=== PATIENT | male | born 1955 | race Caucasian/White ===

== ENCOUNTER 2020-09-10 11:57 | Inpatient (IN) | payer MEDICAID ==
[~2020-09-10] VITALS: Ht 182.9 cm; Wt 119.8 kg
[~2020-09-10 11:57] MED LIST: AMIO200T6 PO; APIX5TAB PO; ASPI-999 PO; FURO-124 PO; FURO20TA4 PO; HYDR-700 PO; LATA2.5D19 OU; LISI-552 PO; LISI10TA2 PO; METO50TA7 PO; POTA20TA15 PO; SERT50TA9 PO; SIMV10TA26 PO
--- NOTE | 2020-09-10 12:11 | ED Cardiac General ---
History of Present Illness General Stated Complaint: CARDIAC Source: patient Exam Limitations: no limitations History of Present Illness Date Seen by Provider: Sep 10, 2020 Time Seen by Provider: 12:09 Initial Comments to ER by EMS from home with reports of defibrillator discharge. He states that he was sitting on the couch watching TV when "that vest exploded on me". He was wearing his LifeVest and he denies any preceding palpitations lightheadedness or chest pain when it "exploded". Occurred yesterday at about 4 PM. He feels fine now. He has not yet had his morning dose of Eliquis but he did have it yesterday. 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 Associated Systoms: Denies Symptoms Allergies and Home Medications Allergies Coded Allergies: No Known Drug Allergies (Unverified , 08/27/20) Home Medications Amiodarone HCl 200 Mg Tablet, 200 MG PO DAILY Prescribed by: BHAVIN CARDENAS on 09/02/20 0854 Apixaban 5 Mg Tablet, 5 MG PO BID Prescribed by: BHAVIN CARDENAS on 09/02/20 0854 Aspirin 81 Mg Tab.chew, 81 MG PO DAILY, (Reported) Furosemide 40 Mg Tablet, 40 MG PO BID Prescribed by: BHAVIN CARDENAS on 09/02/20 0854 Hydroxyzine HCl 25 Mg Tablet, 25 MG PO TID PRN for ANXIETY, (Reported) Latanoprost 2.5 Ml Drops, 1 DROPS OU HS, (Reported) Lisinopril 10 Mg Tablet, 10 MG PO DAILY@0900 Prescribed by: BHAVIN CARDENAS on 09/02/20 0854 Metoprolol Succinate 50 Mg Tab.er.24h, 100 MG PO BID Prescribed by: BHAVIN CARDENAS on 09/02/20 0854 Potassium Chloride 20 Meq Tab.er.prt, 20 MEQ PO DAILY, (Reported) Sertraline HCl 50 Mg Tablet, 50 MG PO DAILY, (Reported) Simvastatin 10 Mg Tablet, 10 MG PO DAILY, (Reported) Patient Home Medication List Home Medication List Reviewed: Yes Review of Systems Review of Systems Constitutional: see HPI EENTM: No Symptoms Reported Respiratory: No Symptoms Reported Cardiovascular: No Symptoms Reported; Denies Chest Pain, Denies Edema, Denies Irregular Heart Rate, Denies Lightheadedness, Denies Palpitations, Denies Syncope Gastrointestinal: No Symptoms Reported Genitourinary: No Symptoms Reported Musculoskeletal: no symptoms reported Skin: no symptoms reported Psychiatric/Neurological: No Symptoms Reported Endocrine: No Symptoms Reported Past Ingyqnf-Mbftlh-Ubhlfc Hx Patient Social History Drug of Choice: weed Type Used: Cigarettes Recent Hopitalizations: No Seasonal Allergies Seasonal Allergies: No Past Medical History Surgeries: Yes (Right Knee) Currently Using CPAP: No Currently Using BIPAP: No Cardiac: No Chronic Edema/Swelling, High Cholesterol, Hypertension Neurological: No Traumatic Brain Injury Genitourinary: No Gastrointestinal: No Musculoskeletal: No Endocrine: No HEENT: No Cancer: No Family Medical History Patient reports no known family medical history. Physical Exam Vital Signs Vital Signs - First Documented 09/10/20 12:00 Temp 36.0 Pulse 84 Resp 20 B/P (MAP) 152/97 (115) Pulse Ox 96 O2 Delivery Room Air Capillary Refill : Height, Weight, BMI Height: '" Weight: lbs. oz. kg; 39.66 BMI Method: General Appearance: No Apparent Distress, WD/WN, Chronically ill (Appears older than stated age) Respiratory: Normal Breath Sounds, No Accessory Muscle Use, No Respiratory Distress Cardiovascular: Regular Rate, Rhythm, Normal Peripheral Pulses Gastrointestinal: Non Tender, Soft Neurologic/Psychiatric: Alert, Oriented x3 Skin: Normal Color, Warm/Dry Progress/Results/Core Measures Results/Orders Lab Results Laboratory Tests Test 09/10/20 12:15 Range/Units White Blood Count 9.8 4.3-11.0 10^3/uL Red Blood Count 5.08 4.30-5.52 10^6/uL Hemoglobin 15.4 13.3-17.7 g/dL Hematocrit 48 40-54 % Mean Corpuscular Volume 95 80-99 fL Mean Corpuscular Hemoglobin 30 25-34 pg Mean Corpuscular Hemoglobin Concent 32 32-36 g/dL Red Cell Distribution Width 14.0 10.0-14.5 % Platelet Count 225 130-400 10^3/uL Mean Platelet Volume 10.0 9.0-12.2 fL Immature Granulocyte % (Auto) 1 % Neutrophils (%) (Auto) 65 42-75 % Lymphocytes (%) (Auto) 26 12-44 % Monocytes (%) (Auto) 7 0-12 % Eosinophils (%) (Auto) 2 0-10 % Basophils (%) (Auto) 1 0-10 % Neutrophils # (Auto) 6.3 1.8-7.8 10^3/uL Lymphocytes # (Auto) 2.5 1.0-4.0 10^3/uL Monocytes # (Auto) 0.7 0.0-1.0 10^3/uL Eosinophils # (Auto) 0.2 0.0-0.3 10^3/uL Basophils # (Auto) 0.1 0.0-0.1 10^3/uL Immature Granulocyte # (Auto) 0.1 0.0-0.1 10^3/uL Prothrombin Time 14.6 12.2-14.7 SEC INR Comment 1.1 0.8-1.4 Activated Partial Thromboplast Time 21 L 24-35 SEC Sodium Level 138 135-145 MMOL/L Potassium Level 4.9 3.6-5.0 MMOL/L Chloride Level 106 98-107 MMOL/L Carbon Dioxide Level 24 21-32 MMOL/L Anion Gap 8 5-14 MMOL/L Blood Urea Nitrogen 31 H 7-18 MG/DL Creatinine 1.25 0.60-1.30 MG/DL Estimat Glomerular Filtration Rate 58 BUN/Creatinine Ratio 25 Glucose Level 94 70-105 MG/DL Calcium Level 8.9 8.5-10.1 MG/DL Corrected Calcium 9.2 8.5-10.1 MG/DL Magnesium Level 2.2 1.6-2.4 MG/DL Total Bilirubin 0.9 0.1-1.0 MG/DL Aspartate Amino Transf (AST/SGOT) 93 H 5-34 U/L Alanine Aminotransferase (ALT/SGPT) 130 H 0-55 U/L Alkaline Phosphatase 75 40-136 U/L Myoglobin 47.0 10.0-92.0 NG/ML Troponin I < 0.028 <0.028 NG/ML B-Type Natriuretic Peptide 532.3 H <100.0 PG/ML Total Protein 8.2 6.4-8.2 GM/DL Albumin 3.6 3.2-4.5 GM/DL My Orders Orders - SARAH WONG APRN Cbc With Automated Diff (09/10/20 12:06) Magnesium (09/10/20 12:06) Chest 1 View, Ap/Pa Only (09/10/20 12:06) Ekg Tracing (09/10/20 12:06) Comprehensive Metabolic Panel (09/10/20 12:06) Myoglobin Serum (09/10/20 12:06) Protime With Inr (09/10/20 12:06) Partial Thromboplastin Time (09/10/20 12:06) O2 (09/10/20 12:06) Monitor-Rhythm Ecg Trace Only (09/10/20 12:06) Lipid Panel (09/11/20 06:00) Ed Iv/Invasive Line Start (09/10/20 12:06) BNP (09/10/20 12:06) Troponin I (09/10/20 12:06) Apixaban Tablet (Eliquis Tablet) (09/10/20 13:00) Vital Signs/I&O 09/10/20 12:00 Temp 36.0 Pulse 84 Resp 20 B/P (MAP) 152/97 (115) Pulse Ox 96 O2 Delivery Room Air Diagnostic Imaging Diagonstic Imaging: Xray Plain Films/CT/US/NM/MRI: chest Comments NAME: KRISTY GROVE [facility] REC#: [id number] PT STATUS: REG ER : 1955 PHYSICIAN: SARAH WONG APRN ADMIT DATE: 09/10/20/ER Draft Date of Exam:09/10/20 CHEST 1 VIEW, AP/PA ONLY INDICATION: Chest pain. COMPARISON: 09/02/2020. FINDINGS: There is a subpulmonic right-sided pleural effusion with subjacent infiltrate or atelectasis. The heart is enlarged. There is some vascular congestion, however vascular congestion and likely edema have decreased from the comparison. IMPRESSION: Right pleural effusion may have increased, however heart size, vascular caliber and pulmonary edema have improved. Dictated on workstation # [id number] Dict: 09/10/20 1309 Trans: 09/10/20 1317 [facility] [id number] Interpreted by: CHANTELL VIRGEN Electronically signed by: Departure Communication (Admissions) Time/Spoke to Admitting Phy: 13:43 Obtained the rhythm strip from [facility] and I can see where he was defibrillated yesterday but not what the rhythm was after the shock. Patient is still asymptomatic. Electrolytes are normal. I spoke with Dr. Hamad, would like the patient admitted on an amiodarone drip. I will continue the Eliquis, continue his Toprol from home which is 100 mg twice a day. Impression Primary Impression: Defibrillator discharge Disposition: ADMITTED INPATIENT Condition: Stable Admissions Decision to Admit Reason: Admit from ER (General) Decision to Admit/Date: Sep 10, 2020 Time/Decision to Admit Time: 13:44 Departure-Patient Inst. Referrals: NO,LOCAL PHYSICIAN (PCP/Family) Primary Care Physician SARAH WONG APRN Sep 10, 2020 12:11
[2020-09-10 12:23] LABS: BASOPHILS # (AUTO) 0.1 10^3/uL (0.0-0.1); BASOPHILS % (AUTO) 1 % (0-10); EOSINOPHILS # (AUTO) 0.2 10^3/uL (0.0-0.3); EOSINOPHILS % (AUTO) 2 % (0-10); HEMATOCRIT 48 % (40-54); HEMOGLOBIN 15.4 g/dL (13.3-17.7); LYMPHOCYTES # (AUTO) 2.5 10^3/uL (1.0-4.0); LYMPHOCYTES % (AUTO) 26 % (12-44); MEAN CORPUSCULAR HEMOGLOBIN 30 pg (25-34); MEAN CORPUSCULAR HGB CONC 32 g/dL (32-36); MEAN CORPUSCULAR VOLUME 95 fL (80-99); MONOCYTES # (AUTO) 0.7 10^3/uL (0.0-1.0); MONOCYTES % (AUTO) 7 % (0-12); NEUTROPHILS # (AUTO) 6.3 10^3/uL (1.8-7.8); NEUTROPHILS % (AUTO) 65 % (42-75); PLATELET COUNT 225 10^3/uL (130-400); WHITE BLOOD COUNT 9.8 10^3/uL (4.3-11.0)
[2020-09-10 12:32] LABS: INR 1.1 (0.8-1.4); PROTHROMBIN TIME PATIENT 14.6 SEC (12.2-14.7)
[2020-09-10 12:35] LABS: ALBUMIN 3.6 GM/DL (3.2-4.5)
[2020-09-10 12:37] LABS: CALCIUM 8.9 MG/DL (8.5-10.1)
[2020-09-10 12:38] LABS: TOTAL PROTEIN 8.2 GM/DL (6.4-8.2)
[2020-09-10 12:39] LABS: BILIRUBIN,TOTAL 0.9 MG/DL (0.1-1.0)
[2020-09-10 12:41] LABS: CREATININE SERUM 1.25 MG/DL (0.60-1.30)
[2020-09-10 12:42] LABS: POTASSIUM 4.9 MMOL/L (3.6-5.0)
[2020-09-10 12:44] LABS: MAGNESIUM 2.2 MG/DL (1.6-2.4)
[2020-09-10] MEDS ORDERED: APIXABAN 5 MG (ELIQUIS) TABLET PO ONE (13:00)
--- NOTE | 2020-09-10 13:17 | Diagnostic Imaging Report ---
INDICATION: Chest pain. COMPARISON: 09/02/2020. FINDINGS: There is a subpulmonic right-sided pleural effusion with subjacent infiltrate or atelectasis. The heart is enlarged. There is some vascular congestion, however vascular congestion and likely edema have decreased from the comparison. IMPRESSION: Right pleural effusion may have increased, however heart size, vascular caliber and pulmonary edema have improved. Dictated by: Dictated on workstation # [id number]
--- NOTE | 2020-09-10 15:14 | Consultation-Cardiology ---
HPI-Cardiology Cardiology Consultation: Date of Consultation 09/10/20 Time Seen by a Provider: 15:30 Date of Admission 09-10-20 Attending Physician Madie Canas MD Admitting Physician No,Local Physician Consulting Physician Silvia Varner MD HPI: Chief Complaint: External defib discharge WCT Mr. Grove is a 65 yr old male who has been admitted to [facility] from the ED d/t WCT resulting if external defib discharge on 09-09-20. He denies any c/o palpitations, syncope or near syncope. He reports chronic SOB with recent worsening. Reports bilat LE swelling which had improved from previous admission, but has began to increase recently. He denies any c/o CP. He continues to smoke cigs. He continues to smoke marijuana, stating last usage a few days ago. He states he has been compliant with medications, but then he reported not taking Lasix yesterday. Review of Systems-Cardiology Review of Systems Constitutional: No chills, No fever Eyes: No vision change Ears/Nose/Throat: No epistaxis, No recent hearing loss Respiratory: As described under HPI Cardiovascular: As described under HPI Gastrointestinal: no symptoms reported Genitourinary: no symptoms reported Musculoskeletal: no symptoms reported Skin: other (bilat LE dry flaky skin); No rash on exposed areas, No ulcerations on exposed areas Psychiatric/Neurological: anxiety; No seizure, No focal weakness, No syncope Hematologic: No bleeding abnormalities QIG-Bcwulu-Fklobz Hx Patient Social History Smoking Status: Current Everyday Smoker Immunizations Up To Date Tetanus Booster (TDap): Unknown Past Medical History PMH As described under Assessment. Family Medical History Family Medical History: He denies any known family h/o CAD. Family History: Patient reports no known family medical history. Allergies and Home Medications Allergies Coded Allergies: No Known Drug Allergies (Unverified , 08/27/20) Home Medications Amiodarone HCl 200 Mg Tablet, 200 MG PO DAILY Prescribed by: BHAVIN CARDENAS on 09/02/20 0854 Apixaban 5 Mg Tablet, 5 MG PO BID Prescribed by: BHAVIN CARDENAS on 09/02/20 0854 Aspirin 81 Mg Tab.chew, 81 MG PO DAILY, (Reported) Furosemide 40 Mg Tablet, 40 MG PO BID Prescribed by: BHAVIN CARDENAS on 09/02/20 0854 Hydroxyzine HCl 25 Mg Tablet, 25 MG PO TID PRN for ANXIETY, (Reported) Latanoprost 2.5 Ml Drops, 1 DROPS OU HS, (Reported) Lisinopril 10 Mg Tablet, 10 MG PO DAILY@0900 Prescribed by: BHAVIN CARDENAS on 09/02/20 0854 Metoprolol Succinate 50 Mg Tab.er.24h, 100 MG PO BID Prescribed by: BHAVIN CARDENAS on 09/02/20 0854 Potassium Chloride 20 Meq Tab.er.prt, 20 MEQ PO DAILY, (Reported) Sertraline HCl 50 Mg Tablet, 50 MG PO DAILY, (Reported) Simvastatin 10 Mg Tablet, 10 MG PO DAILY, (Reported) Physical Exam-Cardiology Physical Exam Vital Signs/I&O 09/10/20 09/11/20 09/11/20 09/11/20 22:00 00:00 01:00 02:06 Temp 36.4 36.7 Pulse 63 60 60 Resp 20 20 B/P (MAP) 145/87 (106) 145/87 (106) Pulse Ox 91 92 O2 Delivery Nasal Cannula Room Air Nasal Cannula O2 Flow Rate 2.00 2.00 09/11/20 09/11/20 09/11/20 03:50 04:05 08:00 Temp 36.4 36.4 Pulse 60 64 Resp 20 16 B/P (MAP) 130/106 (114) 142/116 (125) Pulse Ox 95 93 O2 Delivery Nasal Cannula Nasal Cannula Nasal Cannula O2 Flow Rate 2.00 2.00 2.00 09/11/20 00:00 Intake Total 818 ml Balance 818 ml Capillary Refill : Less Than 3 Seconds Constitutional: AAO x 3, well-developed, well-nourished HEENT: PERRL, hearing is well preserved Neck: No carotid bruit; carotid pulses are 2 + bilaterally Respiratory: No accessory muscle use, No respiratory distress; chest expansion is symmetric, chest is bilaterally symmetric, other (diminished RLL) Cardiovascular: regular rate-rhythm; No JVD; S1 and S2 Gastrointestinal: No tender; soft, round, audible bowel sounds Extremities: other (bilat LE swelling pitting and non-pitting) Neurologic/Psychiatric: grossly intact (moves all extremities) Skin: No rash on exposed areas, No ulcerations on exposed areas Data Review Labs Laboratory Tests 09/10/20 12:15: White Blood Count 9.8, Red Blood Count 5.08, Hemoglobin 15.4, Hematocrit 48, Mean Corpuscular Volume 95, Mean Corpuscular Hemoglobin 30, Mean Corpuscular Hemoglobin Concent 32, Red Cell Distribution Width 14.0, Platelet Count 225, Mean Platelet Volume 10.0, Immature Granulocyte % (Auto) 1, Neutrophils (%) (Auto) 65, Lymphocytes (%) (Auto) 26, Monocytes (%) (Auto) 7, Eosinophils (%) (Auto) 2, Basophils (%) (Auto) 1, Neutrophils # (Auto) 6.3, Lymphocytes # (Auto) 2.5, Monocytes # (Auto) 0.7, Eosinophils # (Auto) 0.2, Basophils # (Auto) 0.1, Immature Granulocyte # (Auto) 0.1, Prothrombin Time 14.6, INR Comment 1.1, Activated Partial Thromboplast Time 21L, Sodium Level 138, Potassium Level 4.9, Chloride Level 106, Carbon Dioxide Level 24, Anion Gap 8, Blood Urea Nitrogen 31H, Creatinine 1.25, Estimat Glomerular Filtration Rate 58, BUN/Creatinine Ratio 25, Glucose Level 94, Calcium Level 8.9, Corrected Calcium 9.2, Magnesium Level 2.2, Total Bilirubin 0.9, Aspartate Amino Transf (AST/SGOT) 93H, Alanine Aminotransferase (ALT/SGPT) 130H, Alkaline Phosphatase 75, Myoglobin 47.0, Troponin I < 0.028, B-Type Natriuretic Peptide 532.3H, Total Protein 8.2, Albumin 3.6 09/10/20 18:00: Troponin I < 0.028 09/11/20 03:00: White Blood Count 9.0, Red Blood Count 5.28, Hemoglobin 16.0, Hematocrit 50, Mean Corpuscular Volume 95, Mean Corpuscular Hemoglobin 30, Mean Corpuscular Hemoglobin Concent 32, Red Cell Distribution Width 14.3, Platelet Count 238, Mean Platelet Volume 10.3, Immature Granulocyte % (Auto) 2, Neutrophils (%) (Auto) 64, Lymphocytes (%) (Auto) 24, Monocytes (%) (Auto) 8, Eosinophils (%) (Auto) 2, Basophils (%) (Auto) 1, Neutrophils # (Auto) 5.7, Lymphocytes # (Auto) 2.2, Monocytes # (Auto) 0.7, Eosinophils # (Auto) 0.2, Basophils # (Auto) 0.1, Immature Granulocyte # (Auto) 0.2H, Sodium Level 135, Potassium Level 4.5, Chloride Level 106, Carbon Dioxide Level 18L, Anion Gap 11, Blood Urea Nitrogen 31H, Creatinine 1.32H, Estimat Glomerular Filtration Rate 55, BUN/Creatinine Ratio 23, Glucose Level 140H, Calcium Level 8.9, Corrected Calcium 9.2, Magnesium Level 2.3, Total Bilirubin 1.1H, Aspartate Amino Transf (AST/SGOT) 90H , Alanine Aminotransferase (ALT/SGPT) 124H, Alkaline Phosphatase 88, Total Protein 7.8, Albumin 3.6, Triglycerides Level 75, Cholesterol Level 130, LDL Cholesterol Direct 75, VLDL Cholesterol 15, HDL Cholesterol 47, Procalcitonin 0.04 09/11/20 06:27: Blood Gas Puncture Site LEFT RADIAL, Blood Gas Patient Temperature 36.4, Arterial Blood pH 7.41, Arterial Blood Partial Pressure CO2 25L, Arterial Blood Partial Pressure O2 74L, Arterial Blood HCO3 16*L, Arterial Blood Total CO2 16.5L, Arterial Blood Oxygen Saturation 96, Arterial Blood Base Excess -8.2L, Te Test POSITIVE, Blood Gas Ventilator Setting NO, Blood Gas Inspired Oxygen 3 09/11/20 07:44: Lactic Acid Level 2.74*H 09/11/20 09:06: Urine Opiates Screen NEGATIVE, Urine Oxycodone Screen NEGATIVE, Urine Methadone Screen NEGATIVE, Urine Propoxyphene Screen NEGATIVE, Urine Barbiturates Screen NEGATIVE, Ur Tricyclic Antidepressants Screen NEGATIVE, Urine Phencyclidine Screen NEGATIVE, Urine Amphetamines Screen NEGATIVE, Urine Methamphetamines Screen NEGATIVE, Urine Benzodiazepines Screen NEGATIVE, Urine Cocaine Screen NEGATIVE, Urine Cannabinoids Screen POSITIVEH Radiology NAME: KRISTY GROVE [facility] REC#: [id number] PT STATUS: REG ER : 1955 PHYSICIAN: SARAH WONG APRN ADMIT DATE: 09/10/20/ER Draft Date of Exam:09/10/20 CHEST 1 VIEW, AP/PA ONLY INDICATION: Chest pain. COMPARISON: 09/02/2020. FINDINGS: There is a subpulmonic right-sided pleural effusion with subjacent infiltrate or atelectasis. The heart is enlarged. There is some vascular congestion, however vascular congestion and likely edema have decreased from the comparison. IMPRESSION: Right pleural effusion may have increased, however heart size, vascular caliber and pulmonary edema have improved. Dictated on workstation # [id number] Dict: 09/10/20 1309 Trans: 09/10/20 1317 [facility] [id number] Interpreted by: CHANTELL VIRGEN Electronically signed by: ECG Impression ECG Initial ECG Rhythm: Normal Sinus A/P-Cardiology Assessment/Admission Diagnosis S/P Life-Vest shock on 09-09-20 d/t WCT Possible pneumonia - management per medical services Dilated cardiomyopathy of undetermined etiology, associated with acute on chronic systolic CHF. Echo of 08/27/19: dilated cardiomyopathy with LVEF 25-30%, biatrial enlargement, mod mitral and tricuspid regurg. A-fib/flutter with a rapid vent response (first diagnosed during hospitalization of Aug 27, 2020) HLD HTN Anxiety Reports hepatitis Reports occ marijuana use - last usage a few days ago H/O ETOH abuse - denies usage in the last 10 yrs Tobaccoism - 1 PPD (cessation advised) Reports h/o Heroin abuse in the distant past Non-compliance with medications/instructions Discussion and Recomendations S/P Life Vest shock d/t WCT Continue Amiodarone gtt Continue OAC with Eliquis Continue BB and SHERRY (-) Continue diuretics Monitor lab Replace electrolytes as indicated Further recs will be based on his hospital course Clinical Quality Measures AMI/AHF: ASA po Prior to arrival: MARIN Rand Sep 10, 2020 15:14
[2020-09-10 15:16] VITALS: BP 138/94
[2020-09-10] MEDS ORDERED: FUROSEMIDE 40 MG (LASIX) TAB PO NR (15:45)
[2020-09-10] MEDS: AMIODARONE 450 MG/250 ML D5W EXCEL IV SCH ×2 (16:45)
[2020-09-10] MEDS ORDERED: ANTACID SUSP 30 ML UDC (MYLANTA) PO PRN (16:45)
[2020-09-10] MEDS ORDERED: ONDANSETRON 4 MG/2 ML (SDV) Z0FRAN IV PRN (16:45)
[2020-09-10] MEDS ORDERED: ONDANSETRON 4 MG (ZOFRAN) ORAL DISSOLVE TAB PO PRN (16:45)
[2020-09-10] MEDS ORDERED: ACETAMINOPHEN 325 MG TABLET PO PRN (16:45)
[2020-09-10] MEDS ORDERED: diphenhydrAMINE 25 MG TAB (BENADRYL) PO PRN (16:45)
[2020-09-10] MEDS ORDERED: polyethylene glycoL POWDER 17 GM (MIRALAX) PACK PO PRN (16:45)
[2020-09-10] MEDS ORDERED: meTOprolol SUCCINATE 100 MG (TOPROL XL) TAB PO ONE (17:53)
[2020-09-10] MEDS ORDERED: hydrALAZINE (APESOLINE) 20 MG/ML VIAL IV PRN (18:00)
[2020-09-10] MEDS ORDERED: meTOprolol SUCCINATE 100 MG (TOPROL XL) TAB PO NR (18:13)
--- NOTE | 2020-09-10 19:04 | Consultation-Cardiology ---
HPI-Cardiology Cardiology Consultation: Date of Consultation 09/10/20 Time Seen by a Provider: 17:30 Date of Admission Attending Physician Madie Canas MD Admitting Physician No,Local Physician Consulting Physician NORA CAVAZOS MD, MA, FACP, FACC, FSCAI, CCDS HPI: Chief Complaint: CC: External defib discharge HPI Mr. Mcnair is a 65 yr old male who has been admitted to [facility] from the ED d/t WCT resulting if external defib discharge on 09-09-20. He denies any c/o palpitations, syncope or near syncope. He reports chronic SOB with recent worsening. Reports bilat LE swelling which had improved from previous admission, but has began to increase recently. He denies any c/o CP. He continues to smoke cigs. He continues to smoke marijuana, stating last usage a few days ago. He states he has been compliant with medications, but then he reported not taking Lasix yesterday. Review of Systems-Cardiology Review of Systems Constitutional: No chills, No fever Eyes: No vision change Ears/Nose/Throat: No epistaxis, No recent hearing loss Respiratory: As described under HPI Cardiovascular: As described under HPI Gastrointestinal: no symptoms reported Genitourinary: no symptoms reported Musculoskeletal: no symptoms reported Skin: other (bilat LE dry flaky skin); No rash on exposed areas, No ulcerations on exposed areas Psychiatric/Neurological: anxiety; No seizure, No focal weakness, No syncope Hematologic: No bleeding abnormalities QNI-Sxgvwt-Tditqz Hx Patient Social History Smoking Status: Current Everyday Smoker Have you traveled recently?: No Alcohol Use?: No Substance type: Marijuana Pt feels they are or have been: No Tobacco type used: Cigarettes Immunizations Up To Date Tetanus Booster (TDap): Unknown Past Medical History PMH As described under Assessment. Family Medical History Family Medical History: He denies any known family h/o CAD. Family History: Patient reports no known family medical history. Allergies and Home Medications Allergies Coded Allergies: No Known Drug Allergies (Unverified , 08/27/20) Home Medications Amiodarone HCl 200 Mg Tablet, 200 MG PO DAILY Prescribed by: BHAVIN CARDENAS on 09/02/20 0854 Apixaban 5 Mg Tablet, 5 MG PO BID Prescribed by: BHAVIN CARDENAS on 09/02/20 0854 Aspirin 81 Mg Tab.chew, 81 MG PO DAILY, (Reported) Furosemide 40 Mg Tablet, 40 MG PO BID Prescribed by: BHAVIN CARDENAS on 09/02/20 0854 Hydroxyzine HCl 25 Mg Tablet, 25 MG PO TID PRN for ANXIETY, (Reported) Latanoprost 2.5 Ml Drops, 1 DROPS OU HS, (Reported) Lisinopril 10 Mg Tablet, 10 MG PO DAILY@0900 Prescribed by: BHAVIN CARDENAS on 09/02/20 0854 Metoprolol Succinate 50 Mg Tab.er.24h, 100 MG PO BID Prescribed by: BHAVIN CARDENAS on 09/02/20 0854 Potassium Chloride 20 Meq Tab.er.prt, 20 MEQ PO DAILY, (Reported) Sertraline HCl 50 Mg Tablet, 50 MG PO DAILY, (Reported) Simvastatin 10 Mg Tablet, 10 MG PO DAILY, (Reported) Patient Home Medication List Home Medication List Reviewed: Yes Physical Exam-Cardiology Physical Exam Vital Signs/I&O 09/10/20 09/10/20 09/10/20 09/10/20 12:00 15:16 15:55 15:57 Temp 36.0 36.7 Pulse 84 83 87 90 Resp 20 22 22 B/P (MAP) 152/97 (115) 138/94 151/112 (125) Pulse Ox 96 96 98 O2 Delivery Room Air Room Air Room Air 09/10/20 09/10/20 16:08 16:21 Temp 36.5 Pulse 87 Resp 20 B/P (MAP) 160/121 (134) Pulse Ox 98 97 O2 Delivery Room Air Room Air Capillary Refill : Less Than 3 Seconds Constitutional: AAO x 3, well-developed, well-nourished HEENT: PERRL, hearing is well preserved Neck: No carotid bruit; carotid pulses are 2 + bilaterally Respiratory: No accessory muscle use, No respiratory distress; chest expansion is symmetric, chest is bilaterally symmetric, other (diminished RLL) Cardiovascular: regular rate-rhythm; No JVD; S1 and S2 Gastrointestinal: No tender; soft, round, audible bowel sounds Extremities: other (bilat LE swelling pitting and non-pitting) Neurologic/Psychiatric: grossly intact (moves all extremities) Skin: No rash on exposed areas, No ulcerations on exposed areas Data Review Labs Laboratory Tests 09/10/20 12:15: White Blood Count 9.8, Red Blood Count 5.08, Hemoglobin 15.4, Hematocrit 48, Mean Corpuscular Volume 95, Mean Corpuscular Hemoglobin 30, Mean Corpuscular Hemoglobin Concent 32, Red Cell Distribution Width 14.0, Platelet Count 225, Mean Platelet Volume 10.0, Immature Granulocyte % (Auto) 1, Neutrophils (%) (Auto) 65, Lymphocytes (%) (Auto) 26, Monocytes (%) (Auto) 7, Eosinophils (%) (Auto) 2, Basophils (%) (Auto) 1, Neutrophils # (Auto) 6.3, Lymphocytes # (Auto) 2.5, Monocytes # (Auto) 0.7, Eosinophils # (Auto) 0.2, Basophils # (Auto) 0.1, Immature Granulocyte # (Auto) 0.1, Prothrombin Time 14.6, INR Comment 1.1, Activated Partial Thromboplast Time 21L, Sodium Level 138, Potassium Level 4.9, Chloride Level 106, Carbon Dioxide Level 24, Anion Gap 8, Blood Urea Nitrogen 31H, Creatinine 1.25, Estimat Glomerular Filtration Rate 58, BUN/Creatinine Ratio 25, Glucose Level 94, Calcium Level 8.9, Corrected Calcium 9.2, Magnesium Level 2.2, Total Bilirubin 0.9, Aspartate Amino Transf (AST/SGOT) 93H, Alanine Aminotransferase (ALT/SGPT) 130H, Alkaline Phosphatase 75, Myoglobin 47.0, Troponin I < 0.028, B-Type Natriuretic Peptide 532.3H, Total Protein 8.2, Albumin 3.6 09/10/20 18:00: Troponin I < 0.028 A/P-Cardiology Assessment/Admission Diagnosis S/P Life-Vest shock on 09-09-20 d/t sustained tachycardia (probably a fib/fl but cannot exclude VT) Possible pneumonia - management per medical services Dilated cardiomyopathy of undetermined etiology, associated with acute on chronic systolic CHF. Echo of 08/27/19: dilated cardiomyopathy with LVEF 25-30%, biatrial enlargement, mod mitral and tricuspid regurg. A-fib/flutter with a rapid vent response (first diagnosed during hospitalization of Aug 27, 2020) HLD HTN Anxiety Reports hepatitis Reports occ marijuana use - last usage a few days ago H/O ETOH abuse - denies usage in the last 10 yrs Tobaccoism - 1 PPD (cessation advised) Reports h/o Heroin abuse in the distant past Non-compliance with medications/instructions Discussion and Recomendations Continue Amiodarone gtt Continue OAC with Eliquis Continue BB and SHERRY (-) Continue diuretics Monitor lab Replace electrolytes as indicated Further recs will be based on his hospital course Clinical Quality Measures AMI/AHF: ASA po Prior to arrival: NORA Eduardo MD FACP FACC CCDS Sep 10, 2020 19:03
[2020-09-10] MEDS: SENNOSIDES 8.6 MG (SENOKOT) TAB PO SCH (19:55)
[2020-09-10] MEDS: APIXABAN 5 MG (ELIQUIS) TABLET PO SCH (19:55)
[2020-09-10] MEDS: DOCUSATE SODIUM 100 MG (COLACE) CAP PO SCH (19:55)
[2020-09-10] MEDS: meTOprolol SUCCINATE 100 MG (TOPROL XL) TAB PO SCH (19:56)
[2020-09-10] MEDS ORDERED: APIXABAN 5 MG (ELIQUIS) TABLET PO SCH (21:00)
[2020-09-11] MEDS: AMIODARONE 450 MG/250 ML D5W EXCEL IV SCH ×2 (00:37)
[2020-09-11] MEDS: MELATONIN 3 MG TABLET PO PRN (00:42)
[2020-09-11 03:52] LABS: BASOPHILS # (AUTO) 0.1 10^3/uL (0.0-0.1); BASOPHILS % (AUTO) 1 % (0-10); EOSINOPHILS # (AUTO) 0.2 10^3/uL (0.0-0.3); EOSINOPHILS % (AUTO) 2 % (0-10); HEMATOCRIT 50 % (40-54); LYMPHOCYTES # (AUTO) 2.2 10^3/uL (1.0-4.0); LYMPHOCYTES % (AUTO) 24 % (12-44); MEAN CORPUSCULAR HEMOGLOBIN 30 pg (25-34); MEAN CORPUSCULAR HGB CONC 32 g/dL (32-36); MEAN CORPUSCULAR VOLUME 95 fL (80-99); MEAN PLATELET VOLUME 10.3 fL (9.0-12.2); MONOCYTES # (AUTO) 0.7 10^3/uL (0.0-1.0); MONOCYTES % (AUTO) 8 % (0-12); NEUTROPHILS # (AUTO) 5.7 10^3/uL (1.8-7.8); NEUTROPHILS % (AUTO) 64 % (42-75); PLATELET COUNT 238 10^3/uL (130-400)
[2020-09-11 04:08] LABS: ALBUMIN 3.6 GM/DL (3.2-4.5); POTASSIUM 4.5 MMOL/L (3.6-5.0)
[2020-09-11 04:09] LABS: CALCIUM 8.9 MG/DL (8.5-10.1)
[2020-09-11 04:11] LABS: TOTAL PROTEIN 7.8 GM/DL (6.4-8.2)
[2020-09-11 04:12] LABS: BILIRUBIN,TOTAL 1.1 MG/DL (0.1-1.0)
[2020-09-11 04:14] LABS: CREATININE SERUM 1.32 MG/DL (0.60-1.30)
[2020-09-11 04:17] LABS: MAGNESIUM 2.3 MG/DL (1.6-2.4)
[2020-09-11] MEDS ORDERED: FUROSEMIDE 40 MG (LASIX) TAB ONE (04:46)
[2020-09-11] MEDS: FUROSEMIDE 40 MG (LASIX) TAB PO SCH (04:52)
[2020-09-11] MEDS: KCL 10 MEQ TAB (MICRO K) PO SCH (04:52)
[2020-09-11 06:32] LABS: ABG BASE EXCESS -8.2 MMOL/L (-2.5-2.5); ABG OXYGEN SATURATION 96 % (94-100); ABG PCO2 25 MMHG (35-45); ABG PH 7.41 (7.37-7.43); ABG PO2 74 MMHG (79-93); ABG TCO2 16.5 MMOL/L (21.0-31.0)
[2020-09-11 06:33] LABS: ALLENS TEST POSITIVE; INSPIRED O2 3; PATIENT TEMP 36.4; VENTILATOR NO
--- NOTE | 2020-09-11 07:46 | Pulmonary Consultation ---
History of Present Illness History of Present Illness Date Seen by Provider: Sep 11, 2020 Time Seen by Provider: 07:42 Date of Admission Allergies and Home Medications Allergies Coded Allergies: No Known Drug Allergies (Unverified , 08/27/20) Home Medications Amiodarone HCl 200 Mg Tablet, 200 MG PO DAILY Prescribed by: BHAVIN CARDENAS on 09/02/20 0854 Apixaban 5 Mg Tablet, 5 MG PO BID Prescribed by: BHAVIN CARDENAS on 09/02/20 0854 Aspirin 81 Mg Tab.chew, 81 MG PO DAILY, (Reported) Furosemide 40 Mg Tablet, 40 MG PO BID Prescribed by: BHAVIN CARDENAS on 09/02/20 0854 Hydroxyzine HCl 25 Mg Tablet, 25 MG PO TID PRN for ANXIETY, (Reported) Latanoprost 2.5 Ml Drops, 1 DROPS OU HS, (Reported) Lisinopril 10 Mg Tablet, 10 MG PO DAILY@0900 Prescribed by: BHAVIN CARDENAS on 09/02/20 0854 Metoprolol Succinate 50 Mg Tab.er.24h, 100 MG PO BID Prescribed by: BHAVIN CARDENAS on 09/02/20 0854 Potassium Chloride 20 Meq Tab.er.prt, 20 MEQ PO DAILY, (Reported) Sertraline HCl 50 Mg Tablet, 50 MG PO DAILY, (Reported) Simvastatin 10 Mg Tablet, 10 MG PO DAILY, (Reported) Past Yoreree-Aqosod-Ulwxht Hx Patient Social History Alcohol Use: Past History Drug of Choice: weed Smoking Status: Current Everyday Smoker Type Used: Cigarettes Recent Infectious Disease Expo: No Recent Hopitalizations: No Have you traveled recently?: No Substance type: Marijuana Alcohol Use?: No Immunizations Up To Date Tetanus Booster (TDap): Unknown PED Vaccines UTD: Yes Seasonal Allergies Seasonal Allergies: No Past Medical History Surgeries: Yes (Right Knee) Currently Using CPAP: No Currently Using BIPAP: No Cardiac: Yes (life vest) Chronic Edema/Swelling, High Cholesterol, Hypertension Neurological: No Traumatic Brain Injury Genitourinary: No Gastrointestinal: No Musculoskeletal: No Endocrine: No HEENT: No Cancer: No Family Medical History Patient reports no known family medical history. Review of Systems Time Seen by Provider: 07:45 Sepsis Event Evaluation Height, Weight, BMI Height: '" Weight: lbs. oz. kg; 36.26 BMI Method: Exam Exam Vital Signs Date Time Temp Pulse Resp B/P (MAP) Pulse Ox O2 Delivery O2 Flow Rate FiO2 09/11/20 04:05 36.4 60 20 130/106 (114) 95 Nasal Cannula 2.00 09/11/20 03:50 Nasal Cannula 2.00 09/11/20 02:06 36.7 60 20 145/87 (106) 92 Nasal Cannula 2.00 09/11/20 01:00 60 09/11/20 00:00 36.4 63 20 145/87 (106) 91 Room Air 09/10/20 22:00 Nasal Cannula 2.00 09/10/20 21:00 Nasal Cannula 2.00 09/10/20 19:28 36.7 63 20 146/106 (119) 91 Room Air 09/10/20 19:00 72 09/10/20 16:21 36.5 87 20 160/121 (134) 97 Room Air 09/10/20 16:08 98 Room Air 09/10/20 15:57 90 09/10/20 15:55 36.7 87 22 151/112 (125) 98 Room Air 09/10/20 15:16 83 22 138/94 96 Room Air 09/10/20 12:00 36.0 84 20 152/97 (115) 96 Room Air I & O 09/11/20 07:00 Intake Total 1118 ml Output Total 200 ml Balance 918 ml Height & Weight Height: '" Weight: lbs. oz. kg; 36.26 BMI Method: General Appearance: No Apparent Distress, WD/WN, Chronically ill (Appears older than stated age) Respiratory: Normal Breath Sounds, No Accessory Muscle Use, No Respiratory Distress Cardiovascular: Regular Rate, Rhythm, Normal Peripheral Pulses Capillary Refill: Less Than 3 Seconds Neurologic/Psychiatric: Alert, Oriented x3 Skin: Normal Color, Warm/Dry Results Lab Laboratory Tests 09/10/20 12:15 09/11/20 03:00 Assessment/Plan Assessment/Plan Resp distress -Check ABG, CXR, Lactic acid Cardiomyophaty 25-30% -Live vest -Cardiology following -Check UDS Right pleural effusion -Monitor -Check PCT -No leukocytosis or fever Afib RVR Anxiety Marijuanna use and h/o Heroin abuse -Check UDS Hx of alcohol dependance KIRT ANDREW DO Sep 11, 2020 07:46
--- NOTE | 2020-09-11 08:40 | Diagnostic Imaging Report ---
INDICATION: Shortness of breath. Comparison with 09/10/2020. FINDINGS: Moderate right pleural effusion and right basilar atelectasis again demonstrated. Left lung is well-aerated and clear. Heart mildly enlarged. No evidence of pulmonary edema. IMPRESSION: 1. Persistent right basilar pleural effusion and atelectasis. Overall appearance has not changed significantly. Dictated by: Dictated on workstation # [id number]
[2020-09-11] MEDS: APIXABAN 5 MG (ELIQUIS) TABLET PO SCH ×2 (08:55→20:54)
[2020-09-11] MEDS: lisINopril 10 MG (PRINIVIL) TABLET PO SCH (08:55)
[2020-09-11] MEDS: DOCUSATE SODIUM 100 MG (COLACE) CAP PO SCH ×2 (08:55→19:56)
[2020-09-11] MEDS: SENNOSIDES 8.6 MG (SENOKOT) TAB PO SCH ×2 (08:55→19:56)
[2020-09-11] MEDS: meTOprolol SUCCINATE 100 MG (TOPROL XL) TAB PO SCH ×3 (08:56→20:38)
[2020-09-11] MEDS: NICOTINE PATCH REMOVAL TP SCH (08:56)
[2020-09-11] MEDS: NICOTINE 14 MG (NICODERM) PATCH TD SCH (08:57)
--- NOTE | 2020-09-11 09:25 | Progress Note - Cardiology ---
Cardiology SOAP Progress Note Subjective: Sitting up in bed Feels SOB is better than yesterday States he feels better than yesterday C/O feeling tired this morning No c/o CP, palpitations Objective: I&O/Vital Signs 09/10/20 09/11/20 09/11/20 09/11/20 22:00 00:00 01:00 02:06 Temp 36.4 36.7 Pulse 63 60 60 Resp 20 20 B/P (MAP) 145/87 (106) 145/87 (106) Pulse Ox 91 92 O2 Delivery Nasal Cannula Room Air Nasal Cannula O2 Flow Rate 2.00 2.00 09/11/20 09/11/20 09/11/20 03:50 04:05 08:00 Temp 36.4 36.4 Pulse 60 64 Resp 20 16 B/P (MAP) 130/106 (114) 142/116 (125) Pulse Ox 95 93 O2 Delivery Nasal Cannula Nasal Cannula Nasal Cannula O2 Flow Rate 2.00 2.00 2.00 09/11/20 00:00 Intake Total 818 ml Balance 818 ml Constitutional: AAO x 3, well-developed, well-nourished Respiratory: No accessory muscle use, No respiratory distress; chest expansion is symmetric, chest is bilaterally symmetric, other (diminished RLL) Cardiovascular: regular rate-rhythm; No JVD; S1 and S2 Gastrointestional: No tender; soft, round, distended, audible bowel sounds Extremities: other (bilat LE swelling pitting and non-pitting) Neurologic/Psychiatric: grossly intact (moves all extremities) Skin: No rash on exposed areas, No ulcerations on exposed areas Results/Procedures: Labs Laboratory Tests 09/10/20 12:15: White Blood Count 9.8, Red Blood Count 5.08, Hemoglobin 15.4, Hematocrit 48, Mean Corpuscular Volume 95, Mean Corpuscular Hemoglobin 30, Mean Corpuscular Hemoglobin Concent 32, Red Cell Distribution Width 14.0, Platelet Count 225, Mean Platelet Volume 10.0, Immature Granulocyte % (Auto) 1, Neutrophils (%) (Auto) 65, Lymphocytes (%) (Auto) 26, Monocytes (%) (Auto) 7, Eosinophils (%) (Auto) 2, Basophils (%) (Auto) 1, Neutrophils # (Auto) 6.3, Lymphocytes # (Auto) 2.5, Monocytes # (Auto) 0.7, Eosinophils # (Auto) 0.2, Basophils # (Auto) 0.1, Immature Granulocyte # (Auto) 0.1, Prothrombin Time 14.6, INR Comment 1.1, Activated Partial Thromboplast Time 21L, Sodium Level 138, Potassium Level 4.9, Chloride Level 106, Carbon Dioxide Level 24, Anion Gap 8, Blood Urea Nitrogen 31H, Creatinine 1.25, Estimat Glomerular Filtration Rate 58, BUN/Creatinine Ratio 25, Glucose Level 94, Calcium Level 8.9, Corrected Calcium 9.2, Magnesium Level 2.2, Total Bilirubin 0.9, Aspartate Amino Transf (AST/SGOT) 93H, Alanine Aminotransferase (ALT/SGPT) 130H, Alkaline Phosphatase 75, Myoglobin 47.0, Troponin I < 0.028, B-Type Natriuretic Peptide 532.3H, Total Protein 8.2, Albumin 3.6 09/10/20 18:00: Troponin I < 0.028 09/11/20 03:00: White Blood Count 9.0, Red Blood Count 5.28, Hemoglobin 16.0, Hematocrit 50, Mean Corpuscular Volume 95, Mean Corpuscular Hemoglobin 30, Mean Corpuscular Hemoglobin Concent 32, Red Cell Distribution Width 14.3, Platelet Count 238, Mean Platelet Volume 10.3, Immature Granulocyte % (Auto) 2, Neutrophils (%) (Aut o) 64, Lymphocytes (%) (Auto) 24, Monocytes (%) (Auto) 8, Eosinophils (%) (Auto) 2, Basophils (%) (Auto) 1, Neutrophils # (Auto) 5.7, Lymphocytes # (Auto) 2.2, Monocytes # (Auto) 0.7, Eosinophils # (Auto) 0.2, Basophils # (Auto) 0.1, Immature Granulocyte # (Auto) 0.2H, Sodium Level 135, Potassium Level 4.5, Chloride Level 106, Carbon Dioxide Level 18L, Anion Gap 11, Blood Urea Nitrogen 31H, Creatinine 1.32H, Estimat Glomerular Filtration Rate 55, BUN/Creatinine Ratio 23, Glucose Level 140H, Calcium Level 8.9, Corrected Calcium 9.2, Magnesium Level 2.3, Total Bilirubin 1.1H, Aspartate Amino Transf (AST/SGOT) 90H , Alanine Aminotransferase (ALT/SGPT) 124H, Alkaline Phosphatase 88, Total Protein 7.8, Albumin 3.6, Triglycerides Level 75, Cholesterol Level 130, LDL Cholesterol Direct 75, VLDL Cholesterol 15, HDL Cholesterol 47, Procalcitonin 0.04 09/11/20 06:27: Blood Gas Puncture Site LEFT RADIAL, Blood Gas Patient Temperature 36.4, Arterial Blood pH 7.41, Arterial Blood Partial Pressure CO2 25L, Arterial Blood Partial Pressure O2 74L, Arterial Blood HCO3 16*L, Arterial Blood Total CO2 16.5L, Arterial Blood Oxygen Saturation 96, Arterial Blood Base Excess -8.2L, Te Test POSITIVE, Blood Gas Ventilator Setting NO, Blood Gas Inspired Oxygen 3 09/11/20 07:44: Lactic Acid Level 2.74*H 09/11/20 09:06: Laboratory Tests 09/10/20 12:15 09/11/20 03:00 Procedures NAME: [facility] REC#: [id number] PT STATUS: ADM IN : 1955 PHYSICIAN: KIRT ANDREW DO ADMIT DATE: 09/10/20/[facility] Draft Date of Exam:09/11/20 CHEST 1 VIEW, AP/PA ONLY INDICATION: Shortness of breath. Comparison with 09/10/2020. FINDINGS: Moderate right pleural effusion and right basilar atelectasis again demonstrated. Left lung is well-aerated and clear. Heart mildly enlarged. No evidence of pulmonary edema. IMPRESSION: 1. Persistent right basilar pleural effusion and atelectasis. Overall appearance has not changed significantly. Dictated on workstation # [id number] Dict: 09/11/20 0838 Trans: 09/11/20 0840 [facility] [id number] Interpreted by: ASHLY HEATON MD d/t sustained tachycardia (probably a fib/fl but cannot exclude VT) Possible pneumonia - management per medical services Sepsis - management per medical services Dilated cardiomyopathy of undetermined etiology, associated with acute on chronic systolic CHF. Echo of 08/27/19: dilated cardiomyopathy with LVEF 25-30%, biatrial enlargement, mod mitral and tricuspid regurg. A-fib/flutter with a rapid vent response (first diagnosed during hospitalization of Aug 27, 2020) HLD HTN Anxiety Reports hepatitis Reports occ marijuana use - last usage a few days ago H/O ETOH abuse - denies usage in the last 10 yrs Tobaccoism - 1 PPD (cessation advised) Reports h/o Heroin abuse in the distant past Non-compliance with medications/instructions Plan: Cardiomyopathy of undetermined cause. Advise cardiac cath to eval coronary stat us. We have discussed the procedure risks benefits and potential complications of cardiac cath with possible ad hoc coronary intervention. He provides informed consent. We will proceed tomorrow or sooner if needed Complete Amiodarone gtt then start oral Continue OAC with Eliquis Continue BB and SHERRY (-) Continue diuretics Monitor lab Replace electrolytes as indicated Elevated lactic acid level prob evolving sepsis - medical services managing Get a UA Clinical Quality Measures AMI/AHF: ASA po Prior to arrival: MARIN Rand Sep 11, 2020 09:25
[2020-09-11 09:29] LABS: AMPHETAMINE SCREEN, URINE NEGATIVE (NEGATIVE); BENZODIAZEPINES SCREEN URINE NEGATIVE (NEGATIVE); COCAINE SCREEN URINE NEGATIVE (NEGATIVE)
[2020-09-11 09:30] LABS: BARBITURATE SCREEN URINE NEGATIVE (NEGATIVE); CANNABINOID SCREEN, URINE POSITIVE (NEGATIVE); METHADONE STAT NEGATIVE (NEGATIVE); METHAMPHETAMINE SCREEN URINE S NEGATIVE (NEGATIVE); OPIATE SCREEN URINE NEGATIVE (NEGATIVE); OXYCODONE STAT NEGATIVE (NEGATIVE); PROPOXYPHENE STAT NEGATIVE (NEGATIVE); TRICYCLIC ANTIDEPRESSANTS SCRE NEGATIVE (NEGATIVE)
[2020-09-11] MEDS ORDERED: hydrOXYzine (VISTARIL/ATARAX) 25 MG capsule/tablet PO PRN (09:45)
[2020-09-11] MEDS: LACTATED RINGERS 1,000 ML IV SCH (09:51)
[2020-09-11] MEDS: SERTRALINE 50 MG (ZOLOFT) TABLET PO SCH (09:51)
--- NOTE | 2020-09-11 10:00 | Progress Note - Cardiology ---
Cardiology SOAP Progress Note Subjective: Some gen malaise No shortness of breath at rest Denies palp since admission No syncope No cp No swelling No n/v/d Objective: I&O/Vital Signs 09/10/20 09/11/20 09/11/20 09/11/20 22:00 00:00 01:00 02:06 Temp 36.4 36.7 Pulse 63 60 60 Resp 20 20 B/P (MAP) 145/87 (106) 145/87 (106) Pulse Ox 91 92 O2 Delivery Nasal Cannula Room Air Nasal Cannula O2 Flow Rate 2.00 2.00 09/11/20 09/11/20 09/11/20 03:50 04:05 08:00 Temp 36.4 36.4 Pulse 60 64 Resp 20 16 B/P (MAP) 130/106 (114) 142/116 (125) Pulse Ox 95 93 O2 Delivery Nasal Cannula Nasal Cannula Nasal Cannula O2 Flow Rate 2.00 2.00 2.00 09/11/20 00:00 Intake Total 818 ml Balance 818 ml Constitutional: AAO x 3, well-developed, well-nourished Respiratory: No accessory muscle use, No respiratory distress; chest expansion is symmetric, chest is bilaterally symmetric, other (diminished RLL) Cardiovascular: regular rate-rhythm; No JVD; S1 and S2 Gastrointestional: No tender; soft, round, distended, audible bowel sounds Extremities: other (bilat LE swelling pitting and non-pitting) Neurologic/Psychiatric: grossly intact (moves all extremities) Skin: No rash on exposed areas, No ulcerations on exposed areas Results/Procedures: Labs Laboratory Tests 09/10/20 12:15: White Blood Count 9.8, Red Blood Count 5.08, Hemoglobin 15.4, Hematocrit 48, Mean Corpuscular Volume 95, Mean Corpuscular Hemoglobin 30, Mean Corpuscular Hemoglobin Concent 32, Red Cell Distribution Width 14.0, Platelet Count 225, Mean Platelet Volume 10.0, Immature Granulocyte % (Auto) 1, Neutrophils (%) (Auto) 65, Lymphocytes (%) (Auto) 26, Monocytes (%) (Auto) 7, Eosinophils (%) (Auto) 2, Basophils (%) (Auto) 1, Neutrophils # (Auto) 6.3, Lymphocytes # (Auto) 2.5, Monocytes # (Auto) 0.7, Eosinophils # (Auto) 0.2, Basophils # (Auto) 0.1, Immature Granulocyte # (Auto) 0.1, Prothrombin Time 14.6, INR Comment 1.1, Activated Partial Thromboplast Time 21L, Sodium Level 138, Potassium Level 4.9, Chloride Level 106, Carbon Dioxide Level 24, Anion Gap 8, Blood Urea Nitrogen 31H, Creatinine 1.25, Estimat Glomerular Filtration Rate 58, BUN/Creatinine Ratio 25, Glucose Level 94, Calcium Level 8.9, Corrected Calcium 9.2, Magnesium Level 2.2, Total Bilirubin 0.9, Aspartate Amino Transf (AST/SGOT) 93H, Alanine Aminotransferase (ALT/SGPT) 130H, Alkaline Phosphatase 75, Myoglobin 47.0, Troponin I < 0.028, B-Type Natriuretic Peptide 532.3H, Total Protein 8.2, Albumin 3.6 09/10/20 18:00: Troponin I < 0.028 09/11/20 03:00: White Blood Count 9.0, Red Blood Count 5.28, Hemoglobin 16.0, Hematocrit 50, Mean Corpuscular Volume 95, Mean Corpuscular Hemoglobin 30, Mean Corpuscular Hemoglobin Concent 32, Red Cell Distribution Width 14.3, Platelet Count 238, Mean Platelet Volume 10.3, Immature Granulocyte % (Auto) 2, Neutrophils (%) (Auto) 64, Lymphocytes (%) (Auto) 24, Monocytes (%) (Auto) 8, Eosinophils (%) (Auto) 2, Basophils (%) (Auto) 1, Neutrophils # (Auto) 5.7, Lymphocytes # (Auto) 2.2, Monocytes # (Auto) 0.7, Eosinophils # (Auto) 0.2, Basophils # (Auto) 0.1, Immature Granulocyte # (Auto) 0.2H, Sodium Level 135, Potassium Level 4.5, Ch loride Level 106, Carbon Dioxide Level 18L, Anion Gap 11, Blood Urea Nitrogen 31H, Creatinine 1.32H, Estimat Glomerular Filtration Rate 55, BUN/Creatinine Ratio 23, Glucose Level 140H, Calcium Level 8.9, Corrected Calcium 9.2, Magnesium Level 2.3, Total Bilirubin 1.1H, Aspartate Amino Transf (AST/SGOT) 90H , Alanine Aminotransferase (ALT/SGPT) 124H, Alkaline Phosphatase 88, Total Protein 7.8, Albumin 3.6, Triglycerides Level 75, Cholesterol Level 130, LDL Cholesterol Direct 75, VLDL Cholesterol 15, HDL Cholesterol 47, Procalcitonin 0.04 09/11/20 06:27: Blood Gas Puncture Site LEFT RADIAL, Blood Gas Patient Temperature 36.4, A rterial Blood pH 7.41, Arterial Blood Partial Pressure CO2 25L, Arterial Blood Partial Pressure O2 74L, Arterial Blood HCO3 16*L, Arterial Blood Total CO2 16.5L, Arterial Blood Oxygen Saturation 96, Arterial Blood Base Excess -8.2L, Te Test POSITIVE, Blood Gas Ventilator Setting NO, Blood Gas Inspired Oxygen 3 09/11/20 07:44: Lactic Acid Level 2.74*H 09/11/20 09:06: Urine Opiates Screen NEGATIVE, Urine Oxycodone Screen NEGATIVE, Urine Methadone Screen NEGATIVE, Urine Propoxyphene Screen NEGATIVE, Urine Barbiturates Screen NEGATIVE, Ur Tricyclic Antidepressants Screen NEGATIVE, Urine Phencyclidine Screen NEGATIVE, Urine Amphetamines Screen NEGATIVE, Urine Methamphetamines Screen NEGATIVE, Urine Benzodiazepines Screen NEGATIVE, Urine Cocaine Screen NEGATIVE, Urine Cannabinoids Screen POSITIVEH Laboratory Tests 09/10/20 12:15 09/11/20 03:00 A/P: Assessment: S/P Life-Vest shock on 09-09-20 d/t sustained tachycardia (probably a fib/fl but cannot exclude VT) Possible pneumonia and sepsis - management per Medical services Dilated cardiomyopathy of undetermined etiology, associated with acute on chronic systolic CHF. Echo of 08/27/19: dilated cardiomyopathy with LVEF 25-30%, biatrial enlargement, mod mitral and tricuspid regurg. A-fib/flutter with a rapid vent response (first diagnosed during hospitalization of Aug 27, 2020) HLD HTN Anxiety Reports hepatitis Reports occ marijuana use - last usage a few days ago H/o ETOH abuse - denies usage in the last 10 yrs Tobaccoism - 1 PPD (cessation advised) Reports h/o Heroin abuse in the distant past Non-compliance with medications/instructions Plan: Cardiomyopathy of undetermined cause. Advise cardiac cath to eval coronary status. We have discussed the procedure risks benefits and potential complications of cardiac cath with possible ad hoc coronary intervention. He provides informed consent. We will proceed tomorrow or sooner if needed Complete Amiodarone gtt then start oral Continue OAC with Eliquis Continue BB and SHERRY (-) Continue diuretics Monitor lab Replace electrolytes as indicated Elevated lactic acid level prob evolving sepsis - Medical services managing Get a UA Clinical Quality Measures AMI/AHF: ASA po Prior to arrival: NORA Eduardo MD FACP FACC CCDS Sep 11, 2020 10:00
[2020-09-11] MEDS ORDERED: APIX5TAB PO (12:10)
[2020-09-11] MEDS ORDERED: LISI-552 PO (12:10)
[2020-09-11] MEDS ORDERED: METO50TA7 PO (12:10)
[2020-09-11] MEDS ORDERED: AMIO200T6 PO (12:10)
[2020-09-11] MEDS ORDERED: FURO20TA4 PO (12:10)
[2020-09-11] MEDS ORDERED: BRIM5DRO2 OU (12:12)
--- NOTE | 2020-09-11 12:14 | NUR ---
SPOKE WITH THE PT (HE HAS HIS HOME MEDS WITH HIM) AND WENT THRU THE EXT MED HISTORY TO COMPLETE THE MED REC WHEN PT WAS DISCHARGED 09-02-2020 HE WAS INSTRUCTED TO STOP TAKING LISINOPRIL 20MG AND FUROSEMIDE 40MG AND START LISINOPRIL 10MG AND FUROSEMIDE 40MG. PT PICKED THE NEW MEDICATIONS UP FROM THE PHARMACY BUT WHEN I LOOKED THRU HIS BOTTLES TODAY HE STILL HAD THE OLD STRENGTHS- WHEN I ASKED THE PT ABOUT THIS HE WAS ADAMANT THAT HE THREW AWAY THE MEDS THAT HAD BEEN STOPPED. I LET THE PT KNOW THAT THE NAMES WOULD BE THE SAME AND IT WOULD BE MGS THAT CHANGED. PT THINKS HE THREW AWAY THE NEWER BOTTLES, FOR THAT REASON I ADDED BACK THE OLDER MEDS AND REMOVED THE NEW ONES
--- NOTE | 2020-09-11 12:25 | History & Physical-Hospitalist ---
History of Present Illness HPI/Chief Complaint Thai Mcnair is a 65-year-old male with hypertension, hyperlipidemia, tobacco abuse, history of polysubstance abuse, heart failure with reduced ejection fraction, who presented to after his Life Vest discharged. He is a poor historian. He reports that he was asymptomatic. He denies any chest pain or palpitations. He denies any lightheadedness or dizziness. He has not been sick recently. He denies any fevers or chills. He denies any abdominal pain, nausea, or vomiting. He denies any dysuria. He reports being compliant with his medications. He does continue to smoke but says that he wants to stop. He does not drink alcohol. He smokes marijuana occasionally. Source: patient Exam Limitations: no limitations Date Seen 09/11/20 Time Seen by a Provider: 08:50 Attending Physician Madie Canas MD PCP No,Local Physician Referring Physician Date of Admission Sep 10, 2020 at 13:42 Home Medications & Allergies Home Medications Reviewed patient Home Medication Reconciliation performed by pharmacy medication reconciliations critical power install technician and/or nursing. Patients Allergies have been reviewed. Allergies Allergies Coded Allergies No Known Drug Allergies (Unverified08/27/20) Past Ddcatnk-Jxgxji-Ebpoyc Hx Past Med/Social Hx: Reviewed Nursing Past Med/Soc Hx Patient Social History Alcohol Use: Past History Recreational Drug Use: Yes Drug of Choice: weed Smoking Status: Current Everyday Smoker Type Used: Cigarettes Recent Foreign Travel: No Contact w/other who traveled: No Recent Hopitalizations: No Recent Infectious Disease Expo: No Immunizations Up To Date Tetanus Booster (TDap): Unknown Pediatric: Yes Seasonal Allergies Seasonal Allergies: No Past Medical History Respiratory: COPD, Pneumonia Currently Using CPAP: No Currently Using BIPAP: No Cardiac: Chronic Edema/Swelling, High Cholesterol, Hypertension Neurological: Traumatic Brain Injury Family History Patient reports no known family medical history. Review of Systems Constitutional: no symptoms reported, see HPI Physical Exam Physical Exam Vital Signs Vital Signs - First Documented 09/10/20 09/10/20 12:00 21:00 Temp 36.0 Pulse 84 Resp 20 B/P (MAP) 152/97 (115) Pulse Ox 96 O2 Delivery Room Air O2 Flow Rate 2.00 Capillary Refill : Less Than 3 Seconds Height, Weight, BMI Height: '" Weight: lbs. oz. kg; 36.26 BMI Method: General Appearance: No Apparent Distress, Obese HEENT: PERRL/EOMI, Pharynx Normal Neck: Normal Inspection, Supple Respiratory: Lungs Clear, Normal Breath Sounds, No Respiratory Distress Cardiovascular: Regular Rate, Rhythm, No Murmur Gastrointestinal: Normal Bowel Sounds, Non Tender, Soft Extremity: Normal Inspection, Non Tender, Pedal Edema Neurologic/Psychiatric: Alert, Oriented x3, No Motor/Sensory Deficits, Normal Mood/Affect Skin: Normal Color, Warm/Dry Results Results/Procedures Labs Laboratory Tests 09/10/20 12:15 09/11/20 03:00 Patient resulted labs reviewed. Imaging: Reviewed Imaging Report Assessment/Plan Admission Diagnosis Wide-complex tachycardia with defibrillator discharge Admission Status: Inpatient Order (span 2 midnights) Reason for Inpatient Admission: IV antiarrhythmics Assessment and Plan Wide-complex tachycardia with defibrillator discharge Atrial fibrillation Heart failure with reduced ejection fraction Cardiology consulted, appreciate assistance Started on IV Amiodarone Monitor on telemetry Planning for left heart catheterization tomorrow Continue Metoprolol and Eliquis Pleural effusion Likely due to heart failure No evidence of acute infectious process Lactic acidosis Possibly due to transient hypotension with arrhythmia WBC and procalcitonin normal No evidence of acute infection Elevated LFTs Chronic, reportedly due to hepatitis Check Hep C antibody Check liver ultrasound HTN HLD Continue home meds Tobacco abuse Nicotine patch ordered Marijuana abuse Recommend cessation Obesity Clinically significant, no acute management needs DVT prophylaxis: already receiving therapeutic anticoagulation Diagnosis/Problems Diagnosis/Problems (1) Wide-complex tachycardia Status: Acute (2) Defibrillator discharge Status: Acute (3) Afib Status: Chronic Qualifiers: Atrial fibrillation type: paroxysmal Qualified Codes: I48.0 - Paroxysmal atrial fibrillation (4) HFrEF (heart failure with reduced ejection fraction) Status: Chronic (5) Elevated LFTs Status: Acute (6) Tobacco abuse Status: Chronic (7) Obesity Status: Chronic Clinical Quality Measures AMI/AHF: ASA po Prior to arrival: MADIE Cadet MD Sep 11, 2020 12:25
[2020-09-11 12:30] LABS: BILIRUBIN,URINE NEGATIVE (NEGATIVE); CLARITY,URINE CLEAR; COLOR,URINE YELLOW; GLUCOSE, URINE (UA) NEGATIVE (NEGATIVE); KETONES,URINE NEGATIVE (NEGATIVE); LEUKOCYTE ESTERASE ,URINE NEGATIVE (NEGATIVE); NITRITE,URINE NEGATIVE (NEGATIVE); PH,URINE 5.5 (5-9); PROTEIN,URINE NEGATIVE (NEGATIVE)
[2020-09-11 12:42] LABS: BACTERIA,URINE TRACE /HPF; WBC,URINE 0-2 /HPF
[2020-09-11 12:44] LABS: AMORPHOUS SEDIMENT,UR FEW AMOR URATES /LPF
--- NOTE | 2020-09-11 14:57 | NUR ---
"RD ASSESSMENT PMHx: hypercholesterolemia; HTN; TBI; polysubstance use (THC, heroin, ETOH); PT INTERACTION: Pt was awake and pleasant during consult for MST score. Pt states current appetite is good. Note PO intake 100% x1meal, per chart review. Pt states following a regular diet at home, and has no issues with chewing/swallowing food. Note pt is missing teeth, per visual assessment. Pt states no recent issues with n/v/c/d. Note last BM was 09/11, and pt currently on bowel regimen of colace BID, and senna BID, per chart review. Pt states recent wt gain, but unsure of amount/timeframe. Note unable to determine recent wt hx, per chart review. Upon visual assessment, pt appears to very well nourished, with a BMI of 36.3 (Obese class II for age). Given PO intake, wt hx, and visual assessment, pt does not meet criteria for malnutrition per ASPEN guidelines. Est. kcal needs: [id number] kcal | 15-18 kcal/kg Est. Pro needs: 97-121 g Pro | 0.8-1.0 g Pro/kg PES STATEMENT: Given current PO intake, no nutrition diagnosis at this time (NO-1.1). INTERVENTION: Continue with current diet order of Heart Healthy diet. Will continue to follow and reassess as pt needs, intake, and status change. Eitan LAWLER, MS RD LD [phone] cell"
[2020-09-11] MEDS ORDERED: LACTATED RINGERS 500 ML IV SCH (15:00)
--- NOTE | 2020-09-11 15:33 | Diagnostic Imaging Report ---
PROCEDURE: US Hepatic (Liver). TECHNIQUE: Multiple real-time grayscale images were obtained over the right upper quadrant in various projections. INDICATION: Elevated liver function tests. Liver is enlarged at 20 cm. The liver does have somewhat nodular contour, raising the question of cirrhosis. No discrete liver mass is identified. Portal vein does demonstrate bidirectional flow. Gallbladder contains numerous stones. Gallbladder wall is thickened at 8 mm. Extrahepatic bile duct is not visualized. Pancreas is also somewhat difficult to visualize. Aorta is obscured. IVC is unremarkable. The right kidney is unremarkable. There is a larger right pleural effusion. There is also right upper quadrant ascites. IMPRESSION: 1. Hepatomegaly. There is a nodular contour to the liver, raising question of cirrhosis. No discrete liver mass is detected. There is also bidirectional flow within the portal vein, raising question of portal hypertension. 2. Cholelithiasis and gallbladder wall thickening up to 8 mm. Cholecystitis cannot be entirely excluded. 3. Right pleural effusion and ascites. Dictated by: Dictated on workstation # [id number]
[2020-09-11] MEDS: ALPRAZolam 0.5 MG (XANAX) TAB PO PRN (20:54)
[2020-09-11] MEDS: AMIODARONE 200 MG (CORDARONE) TAB PO SCH (20:54)
[2020-09-11 22:02] LABS: HEPATITIS C ANTIBODY C Reactive (Non-Reactive)
[2020-09-12] MEDS: LACTATED RINGERS 1,000 ML IV SCH ×2 (01:25→08:35)
[2020-09-12 04:13] LABS: INR 1.5 (0.8-1.4); PROTHROMBIN TIME PATIENT 18.5 SEC (12.2-14.7)
[2020-09-12 04:17] LABS: POTASSIUM 4.6 MMOL/L (3.6-5.0)
[2020-09-12 04:18] LABS: CALCIUM 8.6 MG/DL (8.5-10.1)
[2020-09-12 04:22] LABS: CREATININE SERUM 1.23 MG/DL (0.60-1.30)
--- NOTE | 2020-09-12 05:38 | Pulmonary Progress Note ---
Subjective Time Seen by a Provider: 05:33 Sepsis Event Evaluation Height, Weight, BMI Height: '" Weight: lbs. oz. kg; 36.26 BMI Method: Focused Exam Lactate Level 09/11/20 11:59: Lactic Acid Level 2.17*H 09/11/20 14:09: Lactic Acid Level 3.18*H 09/12/20 03:55: Lactic Acid Level 1.30 Lactic Acid Level Laboratory Tests Test 09/12/20 03:55 Lactic Acid Level 1.30 MMOL/L (0.50-2.00) Exam Exam Vital Signs Date Time Temp Pulse Resp B/P (MAP) Pulse Ox O2 Delivery O2 Flow Rate FiO2 09/12/20 03:55 36.5 48 18 114/89 (97) 92 Nasal Cannula 2.00 09/12/20 01:00 50 09/11/20 23:39 36.0 48 24 117/80 (92) 92 Nasal Cannula 2.00 09/11/20 21:00 90 Nasal Cannula 2.00 09/11/20 20:00 36.4 50 21 116/80 (92) 91 Nasal Cannula 2.00 09/11/20 19:00 50 09/11/20 15:32 36.3 48 24 99/76 (84) 93 Nasal Cannula 2.00 09/11/20 12:30 60 09/11/20 08:30 Nasal Cannula 2.00 09/11/20 08:00 36.4 64 16 142/116 (125) 93 Nasal Cannula 2.00 09/11/20 06:41 63 I & O 09/12/20 07:00 Intake Total 2379 ml Output Total 1055 ml Balance 1324 ml Height & Weight Height: '" Weight: lbs. oz. kg; 36.26 BMI Method: General Appearance: No Apparent Distress, Obese HEENT: PERRL/EOMI, Pharynx Normal Neck: Normal Inspection, Supple Respiratory: Lungs Clear, Normal Breath Sounds, No Respiratory Distress Cardiovascular: Regular Rate, Rhythm, No Murmur Capillary Refill: Less Than 3 Seconds Extremity: Normal Inspection, Non Tender, Pedal Edema Neurologic/Psychiatric: Alert, Oriented x3, No Motor/Sensory Deficits, Normal Mood/Affect Skin: Normal Color, Warm/Dry Results Lab Laboratory Tests 09/10/20 12:15 09/11/20 03:00 09/12/20 03:55 Assessment/Plan Assessment/Plan Resp distress with hypoxia -Oxygen Cardiomyophaty 25-30% -Life vest -Cardiology following -Check UDS Right pleural effusion -Monitor -Check PCT -No leukocytosis or fever Ascites with liver cirhosis -Start Rocpephin for SBP Metabolic lactic acidosis -Now resolved Hep C Afib RVR Anxiety Marijuanna use and h/o Heroin abuse Hx of alcohol dependance KIRT ANDREW DO Sep 12, 2020 05:38
[2020-09-12] MEDS ORDERED: NS IV 1000 ML 1,000 ML IV SCH ×2 (06:00→10:00)
[2020-09-12] MEDS: cefTRIAXone FOR IV USE 1,000 MG in WATER (STERILE) FOR INJECTION 10 ML IV SCH (06:13)
[2020-09-12] MEDS: KCL 10 MEQ TAB (MICRO K) PO SCH (06:13)
[2020-09-12 06:14] LABS: ALBUMIN 3.1 GM/DL (3.2-4.5); POTASSIUM 4.6 MMOL/L (3.6-5.0)
[2020-09-12] MEDS ORDERED: PANTOPRAZOLE 40 MG (PROTONIX) VIAL IV SCH (06:15)
[2020-09-12 06:16] LABS: CALCIUM 8.7 MG/DL (8.5-10.1)
[2020-09-12 06:17] LABS: TOTAL PROTEIN 6.8 GM/DL (6.4-8.2)
[2020-09-12 06:18] LABS: BILIRUBIN,TOTAL 0.8 MG/DL (0.1-1.0)
[2020-09-12 06:21] LABS: CREATININE SERUM 1.26 MG/DL (0.60-1.30)
--- NOTE | 2020-09-12 07:44 | Diagnostic Imaging Report ---
INDICATION: Dyspnea. AP view of the chest is obtained with comparison made study one day earlier. FINDINGS: There is continued right basilar infiltrate and blunting of right costophrenic sulcus indicating pleural fluid. There is slight left basilar atelectasis. No pneumothorax is identified. There is stable cardiomegaly. IMPRESSION: Right basilar infiltrate and associated pleural fluid or thickening have not significantly changed. Dictated by: Dictated on workstation # [id number]
[2020-09-12] MEDS ORDERED: LIDOCAINE 1% INJ 20 ML 20 ML VIAL ONE (08:23)
[2020-09-12] MEDS ORDERED: MIDAZOLAM 5 MG/5 ML (VERSED) VIAL ONE (08:23)
[2020-09-12] MEDS ORDERED: fentaNYL INJECTION 100 MCG/2 ML AMP ONE (08:23)
[2020-09-12] MEDS ORDERED: NS IV 1000 ML 1,000 ML ONE (08:23)
[2020-09-12] MEDS ORDERED: HEParin (CATH LAB) 2,000 ML IV ONE (08:23)
[2020-09-12] MEDS: DOCUSATE SODIUM 100 MG (COLACE) CAP PO SCH ×2 (08:30→19:45)
[2020-09-12] MEDS: NICOTINE PATCH REMOVAL TP SCH (08:30)
[2020-09-12] MEDS: NICOTINE 14 MG (NICODERM) PATCH TD SCH (08:31)
[2020-09-12] MEDS: SENNOSIDES 8.6 MG (SENOKOT) TAB PO SCH ×2 (08:31→19:45)
[2020-09-12] MEDS: AMIODARONE 200 MG (CORDARONE) TAB PO SCH ×2 (08:35→20:01)
[2020-09-12] MEDS: lisINopril 10 MG (PRINIVIL) TABLET PO SCH (08:35)
[2020-09-12] MEDS: meTOprolol SUCCINATE 100 MG (TOPROL XL) TAB PO SCH ×2 (08:35→20:01)
--- NOTE | 2020-09-12 09:49 | Progress Note - Cardiology ---
Cardiology SOAP Progress Note Subjective: Notes some improvement in malaise and shortness of breath No cp or palp or syncope since admission No focal weakness No n/v Objective: I&O/Vital Signs 09/11/20 09/12/20 09/12/20 09/12/20 23:39 01:00 03:55 06:41 Temp 36.0 36.5 Pulse 48 50 48 51 Resp 24 18 B/P (MAP) 117/80 (92) 114/89 (97) Pulse Ox 92 92 O2 Delivery Nasal Cannula Nasal Cannula O2 Flow Rate 2.00 2.00 09/12/20 09/12/20 08:00 08:30 Temp 35.9 Pulse 52 Resp 20 B/P (MAP) 106/69 (81) Pulse Ox 92 O2 Delivery Nasal Cannula Nasal Cannula O2 Flow Rate 2.00 2.00 09/12/20 00:00 Intake Total 2129 ml Output Total 855 ml Balance 1274 ml Constitutional: AAO x 3, well-developed, well-nourished Respiratory: No accessory muscle use, No respiratory distress; chest expansion is symmetric, chest is bilaterally symmetric, other (diminished RLL) Cardiovascular: regular rate-rhythm; No JVD; S1 and S2 Gastrointestional: No tender; soft, round, distended, audible bowel sounds Extremities: other (bilat LE swelling pitting and non-pitting) Neurologic/Psychiatric: grossly intact (moves all extremities) Skin: No rash on exposed areas, No ulcerations on exposed areas Results/Procedures: Labs Laboratory Tests 09/11/20 09:55: Lactic Acid Level 2.06*H 09/11/20 11:59: Lactic Acid Level 2.17*H 09/11/20 14:09: Lactic Acid Level 3.18*H 09/12/20 03:45: Sodium Level 137, Potassium Level 4.6, Chloride Level 107, Carbon Dioxide Level 19L, Anion Gap 11, Blood Urea Nitrogen 33H, Creatinine 1.26, Estimat Glomerular Filtration Rate 58, BUN/Creatinine Ratio 26, Glucose Level 105, Calcium Level 8.7, Corrected Calcium 9.4, Phosphorus Level 4.0, Total Bilirubin 0.8, Aspartate Amino Transf (AST/SGOT) 82H, Alanine Aminotransferase (ALT/SGPT) 109H, Alkaline Phosphatase 76, Ammonia 82H, Total Protein 6.8, Albumin 3.1L 09/12/20 03:55: Prothrombin Time 18.5H, INR Comment 1.5H, Activated Partial Thromboplast Time 32, Sodium Level 137, Potassium Level 4.6, Chloride Level 107, Carbon Dioxide Level 21, Anion Gap 9, Blood Urea Nitrogen 33H, Creatinine 1.23, Estimat Glomerular Filtration Rate 59, BUN/Creatinine Ratio 27, Glucose Level 107H, Lactic Acid Level 1.30, Calcium Level 8.6, Magnesium Level 2.0 A/P: Assessment: Dilated, nonischemic cm with ac on ch systolic CHF (HFrEF) - Echo of 08/27/19: dilated cardiomyopathy with LVEF 25-30%, biatrial enlargement, mod mitral and tricuspid regurg. - Card cath on 09/12/20: mild cor plaques, LVEDP 28 mmHg, LVEF 20-25% S/P Life-Vest shock on 09-09-20 d/t sustained tachycardia (probably a fib/fl but cannot exclude VT) Possible pneumonia and sepsis - management per Medical services A-fib/flutter with a rapid vent response (first diagnosed during hospitalization of Aug 27, 2020) HLD HTN Anxiety Reports hepatitis Reports occ marijuana use - last usage a few days ago H/o ETOH abuse - denies usage in the last 10 yrs Tobaccoism - 1 PPD (cessation advised) Reports h/o Heroin abuse in the distant past Non-compliance with medications/instructions Plan: Continue OAC with Eliquis Continue BB and SHERRY (-) and amiodarone Continue furosemide, add spironolactone, d/c supplemental K Monitor lab Advised continuing Life Vest post discharge I discussed his cath findings in detail with him Clinical Quality Measures AMI/AHF: ASA po Prior to arrival: NORA Eduardo MD FACP FAC CCDS Sep 12, 2020 09:49
[2020-09-12] MEDS ORDERED: PATIENT MAY USE OWN MEDS, ALL PO SCH (10:00)
--- NOTE | 2020-09-12 10:57 | CARDIAC CATHETERIZATION ---
DATE OF SERVICE: 09/12/2020 CARDIAC CATHETERIZATION REPORT The patient is a 65-year-old man who was diagnosed with dilated cardiomyopathy and acute systolic congestive heart failure recently. Cardiac catheterization was carried out after having obtained an informed consent. DESCRIPTION OF PROCEDURE: He was brought to the cardiac catheterization laboratory in a fasting state. Right groin was prepared and draped in the usual sterile fashion. Lidocaine 1% used for local anesthesia. Modified Seldinger technique was used to advance a 5-Niuean sheath in right femoral artery, 5-Niuean JL4 catheter used for left coronary angiography, 5-Niuean JR4 catheter used for right coronary angiography, 5-Niuean pigtail catheter was used for left heart catheterization and left ventricular angiography. Angiography of the right femoral artery was carried out through the sheath and Mynx was used to achieve hemostasis following sheath removal at the end of the procedure. He tolerated the procedure well. HEMODYNAMICS: Left ventricular end-diastolic pressure following coronary angiography was 28 mmHg. There is no significant pressure gradient on pullback across the aortic valve. Ascending aortic pressure was 104/66 with a mean of 85 mmHg. CORONARY ANGIOGRAPHY: Left main coronary artery is free of significant disease. Left anterior descending artery has mild plaques. Left circumflex artery is codominant and has minimal plaques. Right coronary artery is of a small caliber and is codominant. LEFT VENTRICULAR ANGIOGRAPHY: Left ventricular angiography was carried out in the right anterior oblique projection. Global left ventricular systolic function is impaired. There is global hypokinesis. Left ventricular ejection fraction is approximately 20% to 25%. CONCLUSIONS: 1. Angiographically mild coronary artery disease. 2. Impairment of global left ventricular systolic function with ejection fraction 20% to 25%. 3. Elevated left ventricular end-diastolic pressure. DISCUSSION AND RECOMMENDATIONS: Therapy with beta blockers, SHERRY inhibitors and diuretics is being continued. He has been advised external defibrillator vest until he complete months of optimize medical therapy for newly diagnosed dilated, nonischemic cardiomyopathy. If ejection fraction does not improve, he may need permanent defibrillator at that time. Job ID: [id number] DocumentID: [id number] Dictated Date: 09/12/2020 10:03:05 Chief Sustainability Officer Date: 09/12/2020 10:56:11 Dictated By: NORA CAVAZOS MD, MA, FACP, FACC,
--- NOTE | 2020-09-12 11:02 | NUR ---
orders rec'd for smoking cessation. rapport established with patient. smoking cessation benefits discussed, stressors and triggers discussed, coping skills discussed, encouraged. [facility] information pamphlet left with patient, along with [facility] smoking cessation education materials.
[2020-09-12] MEDS: SERTRALINE 50 MG (ZOLOFT) TABLET PO SCH (11:07)
[2020-09-12] MEDS: APIXABAN 5 MG (ELIQUIS) TABLET PO SCH ×2 (11:07→20:01)
[2020-09-12] MEDS: FUROSEMIDE 40 MG (LASIX) TAB PO SCH (11:07)
--- NOTE | 2020-09-12 11:20 | NUR ---
DR CAVAZOS NOTIFIED THIS NURSE PT WILL NEED LIFE VEST AT [facility]. THIS NURSE LEFT MESSAGE WITH KELSEY GARCIA WITH LIFE VEST.
--- NOTE | 2020-09-12 11:42 | Progress Note - Hospitalist ---
Subjective HPI/CC On Admission Date Seen by Provider: Sep 12, 2020 Time Seen by Provider: 10:05 Tahi Mcnair is a 65-year-old male with hypertension, hyperlipidemia, tobacco abuse, history of polysubstance abuse, heart failure with reduced ejection fraction, who presented to after his Life Vest discharged. He is a poor historian. He reports that he was asymptomatic. He denies any chest pain or palpitations. He denies any lightheadedness or dizziness. He has not been sick recently. He denies any fevers or chills. He denies any abdominal pain, nausea, or vomiting. He denies any dysuria. He reports being compliant with his medications. He does continue to smoke but says that he wants to stop. He does not drink alcohol. He smokes marijuana occasionally. Subjective/Events-last exam He is feeling better today. He is not having any chest pain. He is not feeling short of breath. He is not having any fevers or chills. He denies any abdominal pain. Focused Exam Lactate Level 09/11/20 11:59: Lactic Acid Level 2.17*H 09/11/20 14:09: Lactic Acid Level 3.18*H 09/12/20 03:55: Lactic Acid Level 1.30 Objective Exam Vital Signs Vital Signs Date Time Temp Pulse Resp B/P (MAP) Pulse Ox O2 Delivery O2 Flow Rate FiO2 09/12/20 08:30 Nasal Cannula 2.00 09/12/20 08:30 92 09/12/20 08:00 35.9 52 20 106/69 (81) Capillary Refill : Less Than 3 Seconds General Appearance: No Apparent Distress, Obese Respiratory: Lungs Clear, Normal Breath Sounds, No Respiratory Distress Cardiovascular: No Murmur, Irregularly Irregular Gastrointestinal: Normal Bowel Sounds, Non Tender, Soft, Distended Extremity: Normal Inspection, Non Tender, Pedal Edema Neurologic/Psychiatric: Alert, Oriented x3, No Motor/Sensory Deficits, Normal Mood/Affect Skin: Normal Color, Warm/Dry Results/Procedures Lab Laboratory Tests 09/12/20 03:45 09/12/20 03:55 Patient resulted labs reviewed. Imaging: Reviewed Imaging Report Assessment/Plan Assessment and Plan Assess & Plan/Chief Complaint Wide-complex tachycardia with defibrillator discharge Atrial fibrillation Heart failure with reduced ejection fraction Cardiology consulted, appreciate assistance Continue Amiodarone Continue Metoprolol and Eliquis Left heart catheterization without evidence of significant CAD Pleural effusion Likely due to cirrhosis, hepatic hydrothorax No evidence of acute infectious process Hepatitis C Likely cirrhosis Ascites Chronic, reportedly due to hepatitis Unclear if ever received treatment Follows at [facility] with Dr. Jessica De Guzman Hep C antibody positive, PCR pending Ultrasound revealed nodular liver, likely cirrhosis Started on Rocephin for SBP prophylaxis HTN HLD Continue home meds Tobacco abuse Nicotine patch ordered Marijuana abuse Recommend cessation Obesity Clinically significant, no acute management needs DVT prophylaxis: already receiving therapeutic anticoagulation Lactic acidosis, resolved Diagnosis/Problems Diagnosis/Problems (1) Wide-complex tachycardia Status: Acute (2) Defibrillator discharge Status: Acute (3) Afib Status: Chronic Qualifiers: Atrial fibrillation type: paroxysmal Qualified Codes: I48.0 - Paroxysmal atrial fibrillation (4) HFrEF (heart failure with reduced ejection fraction) Status: Chronic (5) Elevated LFTs Status: Acute (6) Tobacco abuse Status: Chronic (7) Obesity Status: Chronic (8) Hepatitis C antibody test positive Status: Acute Clinical Quality Measures AMI/AHF: ASA po Prior to arrival: WAGNER Cadet MD Sep 12, 2020 11:42
[2020-09-12] MEDS: MELATONIN 3 MG TABLET PO PRN (20:00)
[2020-09-12] MEDS: ALPRAZolam 0.5 MG (XANAX) TAB PO PRN (20:01)
[2020-09-13 03:24] LABS: BASOPHILS # (AUTO) 0.1 10^3/uL (0.0-0.1); BASOPHILS % (AUTO) 1 % (0-10); EOSINOPHILS # (AUTO) 0.2 10^3/uL (0.0-0.3); EOSINOPHILS % (AUTO) 2 % (0-10); HEMATOCRIT 47 % (40-54); LYMPHOCYTES # (AUTO) 2.4 10^3/uL (1.0-4.0); LYMPHOCYTES % (AUTO) 25 % (12-44); MEAN CORPUSCULAR HEMOGLOBIN 30 pg (25-34); MEAN CORPUSCULAR HGB CONC 32 g/dL (32-36); MEAN CORPUSCULAR VOLUME 95 fL (80-99); MEAN PLATELET VOLUME 9.8 fL (9.0-12.2); MONOCYTES # (AUTO) 0.8 10^3/uL (0.0-1.0); MONOCYTES % (AUTO) 8 % (0-12); NEUTROPHILS # (AUTO) 6.2 10^3/uL (1.8-7.8); NEUTROPHILS % (AUTO) 64 % (42-75); PLATELET COUNT 228 10^3/uL (130-400); WHITE BLOOD COUNT 9.8 10^3/uL (4.3-11.0)
[2020-09-13 03:39] LABS: CHLORIDE 105 MMOL/L (98-107); POTASSIUM 4.3 MMOL/L (3.6-5.0); SODIUM 135 MMOL/L (135-145)
[2020-09-13 03:40] LABS: CALCIUM 8.5 MG/DL (8.5-10.1)
[2020-09-13 03:41] LABS: GLUCOSE 141 MG/DL (70-105)
[2020-09-13 03:42] LABS: CARBON DIOXIDE 20 MMOL/L (21-32)
[2020-09-13 03:44] LABS: PHOSPHORUS 3.2 MG/DL (2.3-4.7)
[2020-09-13 03:45] LABS: CREATININE SERUM 1.13 MG/DL (0.60-1.30); GFR ESTIMATED > 60
[2020-09-13 03:46] LABS: BUN/CREATININE RATIO 27
--- NOTE | 2020-09-13 03:59 | Pulmonary Progress Note ---
Subjective Time Seen by a Provider: 03:57 Subjective/Events-last exam No complications noted. Sepsis Event Evaluation Height, Weight, BMI Height: '" Weight: lbs. oz. kg; 36.26 BMI Method: Focused Exam Lactate Level 09/11/20 11:59: Lactic Acid Level 2.17*H 09/11/20 14:09: Lactic Acid Level 3.18*H 09/12/20 03:55: Lactic Acid Level 1.30 Exam Exam Vital Signs Date Time Temp Pulse Resp B/P (MAP) Pulse Ox O2 Delivery O2 Flow Rate FiO2 09/13/20 01:00 50 09/12/20 23:37 36.0 46 22 123/85 (98) 92 Nasal Cannula 2.00 09/12/20 21:33 93 Nasal Cannula 2.00 09/12/20 20:00 128/85 (99) 09/12/20 19:39 36.6 50 18 107/70 (82) 92 Nasal Cannula 2.00 09/12/20 19:00 52 09/12/20 15:31 36.6 49 24 120/90 (100) 95 Nasal Cannula 2.00 09/12/20 12:26 49 09/12/20 11:58 36.3 50 16 113/78 (90) 92 Nasal Cannula 3.00 09/12/20 11:10 49 20 110/70 (83) 94 Nasal Cannula 3.00 09/12/20 10:40 50 18 109/79 (89) 94 Nasal Cannula 3.00 09/12/20 10:25 52 18 109/83 (92) 93 Nasal Cannula 3.00 09/12/20 10:10 52 20 115/90 (98) 93 Nasal Cannula 3.00 09/12/20 09:55 51 18 115/80 (92) 92 Nasal Cannula 3.00 09/12/20 09:40 53 20 119/83 (95) 96 Nasal Cannula 3.00 09/12/20 08:30 Nasal Cannula 2.00 09/12/20 08:30 92 Nasal Cannula 2.00 09/12/20 08:00 35.9 52 20 106/69 (81) Nasal Cannula 2.00 09/12/20 06:41 51 I & O 09/13/20 07:00 Intake Total 2645 ml Output Total 1425 ml Balance 1220 ml Height & Weight Height: '" Weight: lbs. oz. kg; 36.26 BMI Method: General Appearance: No Apparent Distress, Obese HEENT: PERRL/EOMI, Pharynx Normal Neck: Normal Inspection, Supple Respiratory: Lungs Clear, Normal Breath Sounds, No Respiratory Distress Cardiovascular: No Murmur, Irregularly Irregular Capillary Refill: Less Than 3 Seconds Extremity: Normal Inspection, Non Tender, Pedal Edema Neurologic/Psychiatric: Alert, Oriented x3, No Motor/Sensory Deficits, Normal Mood/Affect Skin: Normal Color, Warm/Dry Results Lab Laboratory Tests 09/12/20 03:45 09/12/20 03:55 09/13/20 03:10 Assessment/Plan Assessment/Plan Resp distress with hypoxia -Oxygen Cardiomyophaty 25-30% -Life vest -Cardiology following Right pleural effusion -Monitor -Check PCT -No leukocytosis or fever Ascites with liver cirhosis -Rocpephin for SBP Metabolic lactic acidosis -Now resolved Hep C Afib RVR Anxiety Marijuanna use and h/o Heroin abuse Hx of alcohol dependance KIRT ANDREW DO Sep 13, 2020 03:59
[2020-09-13] MEDS: ALPRAZolam 0.5 MG (XANAX) TAB PO PRN ×2 (04:35→20:10)
[2020-09-13] MEDS: cefTRIAXone FOR IV USE 1,000 MG in WATER (STERILE) FOR INJECTION 10 ML IV SCH (06:05)
[2020-09-13] MEDS: DOCUSATE SODIUM 100 MG (COLACE) CAP PO SCH ×2 (08:50→20:05)
[2020-09-13] MEDS: SENNOSIDES 8.6 MG (SENOKOT) TAB PO SCH ×2 (08:50→20:05)
[2020-09-13] MEDS: SPIRONOLACTONE 25 MG (ALDACTONE) TAB PO SCH (08:51)
[2020-09-13] MEDS: SERTRALINE 50 MG (ZOLOFT) TABLET PO SCH (08:51)
[2020-09-13] MEDS: APIXABAN 5 MG (ELIQUIS) TABLET PO SCH ×2 (08:51→20:12)
[2020-09-13] MEDS: meTOprolol SUCCINATE 100 MG (TOPROL XL) TAB PO SCH ×2 (08:51→20:12)
[2020-09-13] MEDS: lisINopril 10 MG (PRINIVIL) TABLET PO SCH (08:51)
[2020-09-13] MEDS: AMIODARONE 200 MG (CORDARONE) TAB PO SCH ×2 (08:51→20:11)
[2020-09-13] MEDS: PANTOPRAZOLE 40 MG (PROTONIX) TAB PO SCH (08:51)
[2020-09-13] MEDS: FUROSEMIDE 40 MG (LASIX) TAB PO SCH (08:51)
[2020-09-13] MEDS: NICOTINE 14 MG (NICODERM) PATCH TD SCH (08:52)
[2020-09-13] MEDS: NICOTINE PATCH REMOVAL TP SCH (08:52)
--- NOTE | 2020-09-13 09:27 | NUR ---
CM/SS visited with the patient for discharge planning. Plan: At time of discharge, patient will return home self care. Home: The patient lives at home by himself. He reports that his mother lives a few blocks away from him. The patient states that he is independent and completes his own ADL's. He has a cane but hasn't used it yet. Equipment: The patient only reports having a cane and life vest. He does not wear oxygen at baseline. The patient does feel he needs home oxygen. The patient states that his life vest "exploded" on him and the physician is working to get him another one. Per chart review, the nurse has called [facility] and left a message. CM/SS will follow up. Financial: The patient has Medicaid insurance and reports that he get's SSI. He does not work. CM/SS will continue to follow.
--- NOTE | 2020-09-13 10:12 | Progress Note - Cardiology ---
Cardiology SOAP Progress Note Subjective: Sitting up in bed watching television SOB with conversation this morning No c/o CP or palpitations Objective: I&O/Vital Signs 09/12/20 09/13/20 09/13/20 09/13/20 23:37 01:00 04:36 07:00 Temp 36.0 35.7 Pulse 46 50 47 46 Resp 22 18 B/P (MAP) 123/85 (98) 102/76 (85) Pulse Ox 92 90 O2 Delivery Nasal Cannula Nasal Cannula O2 Flow Rate 2.00 2.00 09/13/20 09/13/20 09/13/20 08:00 09:00 09:35 Temp 35.5 Pulse 45 Resp 18 B/P (MAP) 113/79 (90) Pulse Ox 98 94 O2 Delivery Nasal Cannula Nasal Cannula Nasal Cannula O2 Flow Rate 2.00 2.00 3.00 09/13/20 00:00 Intake Total 2645 ml Output Total 1425 ml Balance 1220 ml Constitutional: AAO x 3, well-developed, well-nourished Respiratory: No accessory muscle use, No respiratory distress; chest expansion is symmetric, chest is bilaterally symmetric, other (diminished RLL) Cardiovascular: regular rate-rhythm; No JVD; S1 and S2 Gastrointestional: No tender; soft, round, distended, audible bowel sounds Extremities: other (bilat LE swelling pitting and non-pitting) Neurologic/Psychiatric: grossly intact (moves all extremities) Skin: No rash on exposed areas, No ulcerations on exposed areas Results/Procedures: Labs Laboratory Tests 09/13/20 03:10: White Blood Count 9.8, Red Blood Count 4.96, Hemoglobin 15.0, Hematocrit 47, Mean Corpuscular Volume 95, Mean Corpuscular Hemoglobin 30, Mean Corpuscular Hemoglobin Concent 32, Red Cell Distribution Width 14.5, Platelet Count 228, Mean Platelet Volume 9.8, Immature Granulocyte % (Auto) 1, Neutrophils (%) (Auto) 64, Lymphocytes (%) (Auto) 25, Monocytes (%) (Auto) 8, Eosinophils (%) (Auto) 2, Basophils (%) (Auto) 1, Neutrophils # (Auto) 6.2, Lymphocytes # (Auto) 2.4, Monocytes # (Auto) 0.8, Eosinophils # (Auto) 0.2, Basophils # (Auto) 0.1, Immature Granulocyte # (Auto) 0.1, Sodium Level 135, Potassium Level 4.3, Chloride Level 105, Carbon Dioxide Level 20L, Anion Gap 10, Blood Urea Nitrogen 31H, Creatinine 1.13, Estimat Glomerular Filtration Rate > 60, BUN/Creatinine Ratio 27, Glucose Level 141H, Calcium Level 8.5, Phosphorus Level 3.2, Magnesium Level 2.0 Laboratory Tests 09/12/20 03:45 09/12/20 03:55 09/13/20 03:10 A/P: Assessment: Dilated, nonischemic cm with ac on ch systolic CHF (HFrEF) - Echo of 08/27/19: dilated cardiomyopathy with LVEF 25-30%, biatrial enlargement, mod mitral and tricuspid regurg. - Card cath on 09/12/20: mild cor plaques, LVEDP 28 mmHg, LVEF 20-25% S/P Life-Vest shock on 09-09-20 d/t sustained tachycardia (probably a fib/fl but cannot exclude VT) Possible pneumonia and sepsis - management per Medical services A-fib/flutter with a rapid vent response (first diagnosed during hospitalization of Aug 27, 2020) HLD HTN Anxiety Reports hepatitis Reports occ marijuana use - last usage a few days ago H/o ETOH abuse - denies usage in the last 10 yrs Tobaccoism - 1 PPD (cessation advised) Reports h/o Heroin abuse in the distant past Non-compliance with medications/instructions Plan: More SOB this morning with conversation, (+) fluid balance Give additional dose of IV Lasix Continue OAC with Eliquis Continue BB and SHERRY (-) and amiodarone Continue furosemide, add spironolactone, d/c supplemental K Monitor lab Advised continuing Life Vest post discharge Clinical Quality Measures AMI/AHF: ASA po Prior to arrival: MARIN Rand Sep 13, 2020 10:12
[2020-09-13] MEDS ORDERED: FUROSEMIDE 40 MG/4 ML INJ (LASIX) IVP NR (10:15)
--- NOTE | 2020-09-13 11:12 | Progress Note - Hospitalist ---
Subjective HPI/CC On Admission Date Seen by Provider: Sep 13, 2020 Time Seen by Provider: 08:40 Thai Mcnair is a 65-year-old male with hypertension, hyperlipidemia, tobacco abuse, history of polysubstance abuse, heart failure with reduced ejection fraction, who presented to after his Life Vest discharged. He is a poor historian. He reports that he was asymptomatic. He denies any chest pain or palpitations. He denies any lightheadedness or dizziness. He has not been sick recently. He denies any fevers or chills. He denies any abdominal pain, nausea, or vomiting. He denies any dysuria. He reports being compliant with his medications. He does continue to smoke but says that he wants to stop. He does not drink alcohol. He smokes marijuana occasionally. Subjective/Events-last exam He is feeling well today. he denies shortness of breath. He is sitting on the edge of his bed. He just finished his breakfast. He is asking if he can get more pancakes. He has no other complaints or concerns. Focused Exam Lactate Level 09/11/20 11:59: Lactic Acid Level 2.17*H 09/11/20 14:09: Lactic Acid Level 3.18*H 09/12/20 03:55: Lactic Acid Level 1.30 Objective Exam Vital Signs Vital Signs Date Time Temp Pulse Resp B/P (MAP) Pulse Ox O2 Delivery O2 Flow Rate FiO2 09/13/20 09:35 Nasal Cannula 3.00 09/13/20 09:00 94 09/13/20 08:00 35.5 45 18 113/79 (90) Capillary Refill : Less Than 3 Seconds General Appearance: No Apparent Distress, Obese Respiratory: Lungs Clear, Normal Breath Sounds, No Respiratory Distress Cardiovascular: No Murmur, Bradycardia Gastrointestinal: Normal Bowel Sounds, Non Tender, Soft, Distended Extremity: Normal Inspection, Non Tender, Pedal Edema Neurologic/Psychiatric: Alert, Oriented x3, No Motor/Sensory Deficits, Normal Mood/Affect Skin: Normal Color, Warm/Dry Results/Procedures Lab Laboratory Tests 09/13/20 03:10 Patient resulted labs reviewed. Imaging: Reviewed Imaging Report Assessment/Plan Assessment and Plan Assess & Plan/Chief Complaint Defibrillator discharge Atrial fibrillation Heart failure with reduced ejection fraction Cardiology consulted, appreciate assistance Continue Amiodarone Continue Metoprolol and Eliquis Left heart catheterization without evidence of significant CAD Pleural effusion Likely due to cirrhosis, hepatic hydrothorax No evidence of acute infectious process Hepatitis C Likely cirrhosis Ascites Chronic, reportedly due to hepatitis Unclear if ever received treatment Follows at [facility] with Dr. Jessica De Guzman Hep C antibody positive, PCR pending Ultrasound revealed nodular liver, likely cirrhosis Transition to Omnicef for SBP prophylaxis HTN HLD Continue home meds Tobacco abuse Nicotine patch ordered Marijuana abuse Recommend cessation Obesity Clinically significant, no acute management needs DVT prophylaxis: already receiving therapeutic anticoagulation Lactic acidosis, resolved Diagnosis/Problems Diagnosis/Problems (1) Wide-complex tachycardia Status: Acute (2) Defibrillator discharge Status: Acute (3) Afib Status: Chronic Qualifiers: Atrial fibrillation type: paroxysmal Qualified Codes: I48.0 - Paroxysmal atrial fibrillation (4) HFrEF (heart failure with reduced ejection fraction) Status: Chronic (5) Elevated LFTs Status: Acute (6) Tobacco abuse Status: Chronic (7) Obesity Status: Chronic (8) Hepatitis C antibody test positive Status: Acute Clinical Quality Measures AMI/AHF: ASA po Prior to arrival: WAGNER Cadet MD Sep 13, 2020 11:12
--- NOTE | 2020-09-13 13:36 | Physician Query Clarification ---
PQ-Uncertain Diagnosis Admission/Discharge Admission Date: Sep 10, 2020 at 13:42 Discharge Date: Dr. Pickens, The medical record reflects the following clinical scenario: History/Risk Factors: atrial fibrillation, acute on chronic systolic CHF, HTN, dilated cardiomypathy Clinical Findings: T36.0, R 90, R 22, Lactic acid 2.74, CXR right basilar infiltrate Treatment: IV Ceftriaxone Question: Is possible sepsis w/pneumonia a clinically valid diagnosis? Possible sepsis w/pneumonia was documented in the cardiolgist documentation with no further documentation in the medical record. Please document a response in Progress Note or Discharge Summary. 1. Yes, clinically valid, condition resolved. Conditions were present on admission 2. No, condition ruled out. 3. Yes, clinically valid, condition resolved. Conditions developed after admission 4. Other, with explanation of clinical findings. 5. Undetermined, no explanation for clinical findings. PHYSICIAN RESPONSE Diagnosis clinically valid: No, conditon ruled out Please remember a lack of response to the above will prompt a phone page by CDI/Coding staff. In responding to this query, please exercise your independent professional judgment. The purpose of this communication is to more accurately reflect the complexity of your patients condition. The fact that a question is asked does not imply that any particular answer is desired or expected. Thank you for your timely response to this clarification. Requestors name: [email or web address] THIS PHYSICIAN QUERY FORM IS A PERMANENT PART OF THE MEDICAL RECORD MARCELLE SCHAEFER Sep 13, 2020 13:36 WAGNER PICKENS MD Sep 13, 2020 18:05
--- NOTE | 2020-09-13 14:42 | NUR ---
SEBAS/SS update: SEBAS/BLAIR visited with the primary care nurse regarding the patient's life vest and if there is a need for a new one. SEBAS/BLAIR contacted the main line for Life Vest and spoke with enrollment eligibility representative. She reports the patient had called them and requested for them to seed cone picker his life vest. The patient was stating he would not wear it. Therefore, the patient does need a new life vest. SEBAS/SS informed them that the patient is now agreeable to wear it again after he spoke with Dr. Canas and Dr. Varner. The enrollment eligibility representative contacted the patient's room and spoke with him. SEBAS/SS then spoke with Kelly from [facility]. She requested some information to be faxed. SEBAS/SS faxed ([phone]) updated clinical. Kelly reports that they will likely be able to get him refitted this evening and have the life vest for discharge. SEBAS/SS informed the patients primary care nurse and physician. No further needs.
--- NOTE | 2020-09-13 15:41 | Progress Note - Cardiology ---
Cardiology SOAP Progress Note Subjective: Shortness of breath with exertion Gen malaise, but better No cp or palp or syncope Gen weakness Objective: I&O/Vital Signs 09/13/20 09/13/20 09/13/20 09/13/20 04:36 07:00 08:00 08:30 Temp 35.7 35.5 Pulse 47 46 45 47 Resp 18 18 33 B/P (MAP) 102/76 (85) 113/79 (90) Pulse Ox 90 98 95 O2 Delivery Nasal Cannula Nasal Cannula Nasal Cannula O2 Flow Rate 2.00 2.00 2.00 09/13/20 09/13/20 09/13/20 09/13/20 09:00 09:00 09:30 09:35 Pulse 47 46 Resp 28 24 B/P (MAP) Pulse Ox 94 93 97 O2 Delivery Nasal Cannula Nasal Cannula Nasal Cannula Nasal Cannula O2 Flow Rate 2.00 2.00 2.00 3.00 09/13/20 09/13/20 09/13/20 09/13/20 10:30 11:00 11:30 12:00 Temp 36.2 Pulse 46 48 49 Resp 19 7 12 19 B/P (MAP) 142/87 (105) Pulse Ox 94 93 94 93 O2 Delivery Room Air 09/13/20 09/13/20 12:29 15:21 Temp 36.0 Pulse 48 46 Resp 22 B/P (MAP) 116/90 (99) O2 Delivery Room Air 09/13/20 00:00 Intake Total 2645 ml Output Total 1425 ml Balance 1220 ml Constitutional: AAO x 3, well-developed, well-nourished Respiratory: No accessory muscle use, No respiratory distress; chest expansion is symmetric, chest is bilaterally symmetric, other (diminished RLL) Cardiovascular: regular rate-rhythm; No JVD; S1 and S2 Gastrointestional: No tender; soft, round, distended, audible bowel sounds Extremities: other (bilat LE swelling pitting and non-pitting, improved compared to admission) Neurologic/Psychiatric: grossly intact (moves all extremities) Skin: No rash on exposed areas, No ulcerations on exposed areas Results/Procedures: Labs Laboratory Tests 09/13/20 03:10: White Blood Count 9.8, Red Blood Count 4.96, Hemoglobin 15.0, Hematocrit 47, Mean Corpuscular Volume 95, Mean Corpuscular Hemoglobin 30, Mean Corpuscular Hemoglobin Concent 32, Red Cell Distribution Width 14.5, Platelet Count 228, Mean Platelet Volume 9.8, Immature Granulocyte % (Auto) 1, Neutrophils (%) (Auto) 64, Lymphocytes (%) (Auto) 25, Monocytes (%) (Auto) 8, Eosinophils (%) (Auto) 2, Basophils (%) (Auto) 1, Neutrophils # (Auto) 6.2, Lymphocytes # (Auto) 2.4, Monocytes # (Auto) 0.8, Eosinophils # (Auto) 0.2, Basophils # (Auto) 0.1, Immature Granulocyte # (Auto) 0.1, Sodium Level 135, Potassium Level 4.3, Chloride Level 105, Carbon Dioxide Level 20L, Anion Gap 10, Blood Urea Nitrogen 31H, Creatinine 1.13, Estimat Glomerular Filtration Rate > 60, BUN/Creatinine Ratio 27, Glucose Level 141H, Calcium Level 8.5, Phosphorus Level 3.2, Magnesium Level 2.0 Laboratory Tests 09/12/20 03:45 09/12/20 03:55 09/13/20 03:10 A/P: Assessment: Dilated, nonischemic cm with ac on systolic CHF (HFrEF) - Echo of 08/27/19: dilated cardiomyopathy with LVEF 25-30%, biatrial enlargement, mod mitral and tricuspid regurg. - Card cath on 09/12/20: mild cor plaques, LVEDP 28 mmHg, LVEF 20-25% S/P Life-Vest shock on 09-09-20 d/t sustained tachycardia (probably a fib/fl but cannot exclude VT) Possible pneumonia and sepsis - management per Medical services A-fib/flutter with a rapid vent response (first diagnosed during hospitalization of Aug 27, 2020) HLD HTN Anxiety Reports hepatitis Reports occ marijuana use - last usage a few days ago H/o ETOH abuse - denies usage in the last 10 yrs Tobaccoism - 1 PPD (cessation advised) Reports h/o Heroin abuse in the distant past Non-compliance with medications/instructions Plan: More SOB this morning with conversation, (+) fluid balance Give additional dose of IV Lasix Continue OAC with Eliquis Continue BB and SHERRY (-) and amiodarone Continue furosemide, add spironolactone, d/c supplemental K Monitor lab Advised continuing Life Vest post discharge. Possible d/c tomorrow if Life Vest in place by then Clinical Quality Measures AMI/AHF: ASA po Prior to arrival: NORA Eduardo MD FACP FAC CCDS Sep 13, 2020 15:41
[2020-09-13] MEDS: MELATONIN 3 MG TABLET PO PRN (20:10)
[2020-09-14 03:30] LABS: BASOPHILS # (AUTO) 0.1 10^3/uL (0.0-0.1); BASOPHILS % (AUTO) 1 % (0-10); EOSINOPHILS # (AUTO) 0.2 10^3/uL (0.0-0.3); EOSINOPHILS % (AUTO) 2 % (0-10); HEMATOCRIT 46 % (40-54); HEMOGLOBIN 14.4 g/dL (13.3-17.7); LYMPHOCYTES # (AUTO) 2.5 10^3/uL (1.0-4.0); LYMPHOCYTES % (AUTO) 29 % (12-44); MEAN CORPUSCULAR HEMOGLOBIN 30 pg (25-34); MEAN CORPUSCULAR HGB CONC 31 g/dL (32-36); MEAN CORPUSCULAR VOLUME 96 fL (80-99); MEAN PLATELET VOLUME 10.2 fL (9.0-12.2); MONOCYTES # (AUTO) 0.7 10^3/uL (0.0-1.0); MONOCYTES % (AUTO) 8 % (0-12); NEUTROPHILS # (AUTO) 5.1 10^3/uL (1.8-7.8); NEUTROPHILS % (AUTO) 59 % (42-75); PLATELET COUNT 214 10^3/uL (130-400); WHITE BLOOD COUNT 8.7 10^3/uL (4.3-11.0)
[2020-09-14 03:50] LABS: PHOSPHORUS 3.8 MG/DL (2.3-4.7)
[2020-09-14 03:52] LABS: MAGNESIUM 2.1 MG/DL (1.6-2.4)
[2020-09-14 04:03] LABS: CHLORIDE 103 MMOL/L (98-107); POTASSIUM 3.8 MMOL/L (3.6-5.0); SODIUM 136 MMOL/L (135-145)
[2020-09-14 04:05] LABS: CALCIUM 8.2 MG/DL (8.5-10.1); GLUCOSE 91 MG/DL (70-105)
[2020-09-14 04:06] LABS: CARBON DIOXIDE 21 MMOL/L (21-32)
[2020-09-14 04:09] LABS: GFR ESTIMATED > 60
[2020-09-14 04:10] LABS: BUN/CREATININE RATIO 23
[2020-09-14] MEDS: cefTRIAXone FOR IV USE 1,000 MG in WATER (STERILE) FOR INJECTION 10 ML IV SCH (05:03)
[2020-09-14] MEDS: PANTOPRAZOLE 40 MG (PROTONIX) TAB PO SCH (07:55)
[2020-09-14] MEDS: SERTRALINE 50 MG (ZOLOFT) TABLET PO SCH (07:55)
[2020-09-14] MEDS: FUROSEMIDE 40 MG (LASIX) TAB PO SCH (07:55)
[2020-09-14] MEDS: APIXABAN 5 MG (ELIQUIS) TABLET PO SCH (07:55)
[2020-09-14] MEDS: SPIRONOLACTONE 25 MG (ALDACTONE) TAB PO SCH (07:55)
[2020-09-14] MEDS: DOCUSATE SODIUM 100 MG (COLACE) CAP PO SCH (07:56)
[2020-09-14] MEDS: NICOTINE 14 MG (NICODERM) PATCH TD SCH (07:56)
[2020-09-14] MEDS: NICOTINE PATCH REMOVAL TP SCH (07:56)
[2020-09-14] MEDS: SENNOSIDES 8.6 MG (SENOKOT) TAB PO SCH (07:56)
--- NOTE | 2020-09-14 08:35 | NUR ---
This RN spoke with product sales representative from [employer]est. Life Vest will not be fitting pt today due to pt refusal of Life Vest. This RN spoke with pt. Pt states "I feel fine with all the new medications and I don't think that I will need it." Will update Dr. Varner.
[2020-09-14] MEDS: meTOprolol SUCCINATE 100 MG (TOPROL XL) TAB PO SCH (08:56)
--- NOTE | 2020-09-14 09:10 | NUR ---
This RN and Saida RN educated pt about Life Vest, and about pt heart and heart rhythms. Pt continues to state that "I feel more comfortable without the vest, and as long as I don't get worked up or do to much I am fine." Pt wants to try to go without it later, but would maybe want one later, we educated pt to contact Dr. Varner's office if he changes his mind. Spoke with pt about maybe getting a life alert since he does live at home alone, and needs some help at times. Pt likes the idea of life alert better, and there is an ambulance close to his house if needed.
[2020-09-14] MEDS: lisINopril 10 MG (PRINIVIL) TABLET PO SCH (09:18)
--- NOTE | 2020-09-14 09:38 | NUR ---
PATIENT QUALIFIES FOR 3L WHILE AMBULATORY Addendum: 09/14/20 at 0938 by CHEYANNE SHELTON RT Amended: Links added.
[2020-09-14] MEDS: AMIODARONE 200 MG (CORDARONE) TAB PO SCH (10:15)
[2020-09-14] MEDS ORDERED: FURO40TA4 PO (10:44)
[2020-09-14] MEDS ORDERED: CEFD300C3 PO (10:44)
[2020-09-14] MEDS ORDERED: SPIR25TA5 PO (10:44)
[2020-09-14] MEDS ORDERED: LISI-552 PO (10:44)
[2020-09-14] MEDS ORDERED: AMIO200T6 PO (11:15)
--- NOTE | 2020-09-14 11:48 | Progress Note - Cardiology ---
Cardiology SOAP Progress Note Subjective: No cp or palp or syncope or shortness of breath Feels well Wishes to go home Refuses LifeVest (even after a long and full discussion of its need and the potential implications of not wearing it that may include ) Objective: I&O/Vital Signs 09/14/20 09/14/20 09/14/20 09/14/20 01:00 03:05 07:00 07:44 Temp 36.6 36.0 Pulse 44 42 43 48 Resp 24 15 B/P (MAP) 115/79 (91) 146/99 (115) Pulse Ox 92 91 O2 Delivery Nasal Cannula Nasal Cannula O2 Flow Rate 3.00 3.00 09/14/20 09/14/20 08:00 09:35 Pulse 56 Pulse Ox 95 87 O2 Delivery Nasal Cannula O2 Flow Rate 1.00 0.00 09/14/20 00:00 Intake Total 1990 ml Output Total 2050 ml Balance -60 ml Constitutional: AAO x 3, well-developed, well-nourished Respiratory: No accessory muscle use, No respiratory distress; chest expansion is symmetric, chest is bilaterally symmetric, other (diminished RLL) Cardiovascular: regular rate-rhythm; No JVD; S1 and S2 Gastrointestional: No tender; soft, round, distended, audible bowel sounds Extremities: other (bilat LE swelling pitting and non-pitting, improved compared to admission) Neurologic/Psychiatric: grossly intact (moves all extremities) Skin: No rash on exposed areas, No ulcerations on exposed areas Results/Procedures: Labs Laboratory Tests 09/14/20 02:50: White Blood Count 8.7, Red Blood Count 4.78, Hemoglobin 14.4, Hematocrit 46, Elsy n Corpuscular Volume 96, Mean Corpuscular Hemoglobin 30, Mean Corpuscular Hemoglobin Concent 31L, Red Cell Distribution Width 14.5, Platelet Count 214, Mean Platelet Volume 10.2, Immature Granulocyte % (Auto) 1, Neutrophils (%) (Auto) 59, Lymphocytes (%) (Auto) 29, Monocytes (%) (Auto) 8, Eosinophils (%) (Auto) 2, Basophils (%) (Auto) 1, Neutrophils # (Auto) 5.1, Lymphocytes # (Auto) 2.5, Monocytes # (Auto) 0.7, Eosinophils # (Auto) 0.2, Basophils # (Auto) 0.1, Immature Granulocyte # (Auto) 0.1, Sodium Level 136, Potassium Level 3.8, Chloride Level 103, Carbon Dioxide Level 21, Anion Gap 12, Blood Urea Nitrogen 28H, Creatinine 1.20, Estimat Glomerular Filtration Rate > 60, BUN/Creatinine Ratio 23, Glucose Level 91, Calcium Level 8.2L, Phosphorus Level 3.8, Magnesium Level 2.1 Laboratory Tests 09/13/20 03:10 09/14/20 02:50 A/P: Assessment: Dilated, nonischemic cm with ac on ch systolic CHF (HFrEF) - Echo of 08/27/19: dilated cardiomyopathy with LVEF 25-30%, biatrial enlargement, mod mitral and tricuspid regurg. - Card cath on 09/12/20: mild cor plaques, LVEDP 28 mmHg, LVEF 20-25% S/P Life-Vest shock on 09-09-20 d/t sustained tachycardia (probably a fib/fl but cannot exclude VT) Possible pneumonia and sepsis - management per Medical services A-fib/flutter with a rapid vent response (first diagnosed during hospitalization of Aug 27, 2020) HLD HTN Anxiety Reports hepatitis Reports occ marijuana use - last usage a few days ago H/o ETOH abuse - denies usage in the last 10 yrs Tobaccoism - 1 PPD (cessation advised) Reports h/o Heroin abuse in the distant past Non-compliance with medications/instructions Plan: Continue current regimen. Change amiodarone to 400 daily Advised med compliance and f/u Return to ER in case of any recurrence of symptoms or new symptoms Advised LifeVest Refuses LifeVest (even after a long and full discussion of its need and the potential implications of not wearing it that may include ). States will leave AMA Clinical Quality Measures AMI/AHF: ASA po Prior to arrival: NORA Eduardo MD FACP FAC CCDS Sep 14, 2020 11:48
== END 2020-09-14 14:27 | disposition left against medical advice (07) | DRG 286 ==
LOC: EDUNIT# 11:57 → ER 11:58 → CSD 13:42
PROVIDERS: ADMIT Internal Medicine; ATTEND Internal Medicine
PROC: 4A023N7 Measurement of Cardiac Sampling and Pressure, Left Heart, Percutaneous Approach (ICD-10-PCS; principal; 2020-09-12)
PROC: B2111ZZ Fluoroscopy of Multiple Coronary Arteries using Low Osmolar Contrast (ICD-10-PCS; 2020-09-12)
PROC: B2151ZZ Fluoroscopy of Left Heart using Low Osmolar Contrast (ICD-10-PCS; 2020-09-12)
DX: I48.91 Unspecified atrial fibrillation (principal); I50.23 Acute on chronic systolic (congestive) heart failure; J96.01 Acute respiratory failure with hypoxia; R18.8 Other ascites; E87.2 Acidosis; I48.92 Unspecified atrial flutter; I11.0 Hypertensive heart disease with heart failure; I42.0 Dilated cardiomyopathy; K74.60 Unspecified cirrhosis of liver; F41.9 Anxiety disorder, unspecified; E78.00 Pure hypercholesterolemia, unspecified; E66.9 Obesity, unspecified; F17.210 Nicotine dependence, cigarettes, uncomplicated; F12.10 Cannabis abuse, uncomplicated; B19.20 Unspecified viral hepatitis C without hepatic coma; Z79.82 Long term (current) use of aspirin; Z79.01 Long term (current) use of anticoagulants; Z91.14 Patient's other noncompliance with medication regimen; Z68.35 Body mass index [BMI] 35.0-35.9, adult
CPT/HCPCS: 36415; 71045; 76705; 80048; 80053; 80061; 80306; 81000; 82140; 82805; 83605; 83735; 83874; 83880; 84100; 84145; 84484; 85025; 85610; 85730; 86803; 87522; 93005; 93041; 93458; 94761